=== PATIENT | female | born 1940 | race Caucasian/White ===

== ENCOUNTER 2017-05-10 11:47 | Inpatient (IN) | payer OTHER ==
[~2017-05-10] VITALS: Ht 165.1 cm; Wt 72.6 kg
[~2017-05-10 11:47] MED LIST: ACEPHEN650 MG PR; APAP ARTHRITIS650 MG PO; ASPIR 8181 MG PO; ATIVAN1 M1 PO; AUGMENTIN 875875 MG PO; BENTYL20 MG PO; CEPHALEXIN500 MG PO; COZAAR50 M1 PO; CYMBALTA 30 MG30 MG PO; CYMBALTA60 MG PO; DAILY MULTIPLE1 EACH PO; DULCOLAX10 MG PR; DULOXETINE60 MG; ELIQUIS5 MG PO; ESCITALOPRAM5 MG; FERROUS SULFAT325 M3 PO; FLEET ENEMA 131 UNIT RC; FLEXERIL 5MG TAB5 MG PO; FLUVIRIN 245 MCG/0.1 IM; GABAPENTIN TAB600 MG PO; GABAPENTIN300 MG; GABAPENTIN600 MG; GABAPENTIN600 MG PO; GAVILAX17 GM PO; HUMALOG100 UNIT/1 SC; HYDROCO/APAP TAB 5-3; HYDROCODONE/ACE1 TA1 PO; LACTULOSE10 GM/153 PO; LANTUS INS100 UNITS/; LEVEMIR FLEX100 U/M1 SC; LEVEMIR100 UNIT/1 SC; LIPITOR20 M2 PO; LOVENOX40 MG/0.1 SC; MEROPENEM1 GM IV; MILK OF MAGNESI30 ML PO; MORPHINE S10 MG/5 ML PO; NEURONTIN300 M1 PO; NORCO 325 MG-51 TAB PO; NOVOLOG FLEX100 U/ML SC; NOVOLOG100 U/ML; NOVOLOG100 U/ML SC; NYSTOP100000 U/G; OXYBUTYNIN5 MG/5 ML PO; OXYCODONE HCL10 M2 PO; OXYCODONE HYDRO10 M1 PO; PEPCID20 MG PO; PERCOCET 325 MG-5 MG PO; PERCOCET 325 MG1 TA2 PO; PLAVIX 75MG TAB75 MG PO; PRILOSEC 20MG C20 MG PO; PRILOSEC OTC20 M1 PO; PRIMAXIN IV; REMERON45 M1 PO; ROBITUSSIN COU237 ML PO; SANTYL250 U/GM; SENOKOT8.6 MG PO; TOLTERODINE TART4 MG; TOLTERODINE TART4 MG PO; TORADOL10 MG PO; TRAMADOL50 MG PO; TRAZODONE HCL150 MG; TRAZODONE HCL50 M1 PO; TRAZODONE150 MG PO; ULTRAM(MONOGRAP50 MG PO; VANCOMYCIN 11000 MG IV; VENLAFAXINE HC225 MG PO; VICODIN 300 MG-1 TAB PO; VITAMIN C500 M7 PO; WARFARIN SODIUM5 MG; ZOFRAN ODT4 MG SL; [UNRECOGNIZED DRUG - CODE] IV; [UNRECOGNIZED DRUG - SUPPLY]
--- NOTE | 2017-05-10 11:52 | ED GI/GU/ABDOMINAL COMPLAINT ---
History of Present Illness General Chief Complaint: Abdominal Pain/Flank Pain Stated Complaint: LLQ ABD PAIN Source: old records, EMS, W10 Exam Limitations: clinical condition Vital Signs & Intake/Output Vital Signs & Intake/Output Vital Signs Date Time Temp Pulse Resp B/P B/P Pulse O2 O2 Flow FiO2 Mean Ox Delivery Rate 05/12 1006 80 164/60 05/12 0724 98.8 79 20 138/57 95 05/12 0000 110/50 96 Room Air 05/11 2153 Room Air 05/11 2033 98.6 77 18 138/50 95 Room Air ED Intake and Output 05/12 0000 05/11 1200 Intake Total 09949 1280 Output Total Balance 45740 1280 [place] [address] 800 Intake, Oral 1800 480 Number 3 4 Bowel Movements Allergies Coded Allergies: adhesive tape (Intermediate, RASH 10/15/16) prochlorperazine (From Compazine) (Intermediate, SWELLING 10/15/16) warfarin (Intermediate, AMS 10/15/16) Reconcile Medications Apixaban (Eliquis) 5 MG TABLET 1 TAB PO BID BLOOD THINNER (Reported) Ascorbate Calcium (Vitamin C) 500 MG TABLET 1 TAB PO DAILY VITAMIN SUPPORT ( Reported) Ascorbic Acid (Vitamin C) 500 MG CAPSULE.ER 1 CAP PO DAILY VITAMIN (Reported) Atorvastatin Calcium (Lipitor) 20 MG TABLET 1 TAB PO QPM CHOLESTEROL ( Reported) Carbidopa/Levodopa (Carbidopa-Levodopa 25-100 Tab) 25 MG-100 MG TABLET 0.5 TAB PO TID PARKINSONS (Reported) Enoxaparin Sodium (Lovenox) 40 MG/0.4 ML SYRINGE 0.4 ML SC DAILY PREVENT BLOOD CLOT (Reported) Ferrous Sulfate 325 MG (65 MG IRON) TABLET 1 TAB PO DAILY SUPPLEMENT ( Reported) Gabapentin (Neurontin) 300 MG CAPSULE 1 CAP PO TID NEUROPATHY (Reported) Insulin Detemir (Levemir) 100 UNIT/ML VIAL 52 UNIT SC DAILY DM (Reported) Insulin Lispro (Humalog) 100 UNIT/ML CARTRIDGE DM (Reported) FS:151-200= 4 UNITS 201-250= 6 UNITS 251-300= 8 UNITS 301-350= 10 UNITS 351-400= 12 UNITS 401 AND GREATER= 14 UNITS AND CALL MD Lactulose 10 GRAM/15 ML SOLUTION 15 ML PO DAILY GI (Reported) Lorazepam (Ativan) 1 MG TABLET 1 TAB PO Q6H PRN ANXIETY (Reported) Losartan Potassium (Cozaar) 50 MG TABLET 1 TAB PO DAILY HEART (Reported) Metformin HCl 1,000 MG TABLET 1 TAB PO BID DM (Reported) Mirtazapine (Remeron) 45 MG TABLET 0.5 TAB PO QPM DEPRESSION (Reported) Multivitamin (Daily Multiple Vitamin) 1 EACH TABLET 1 TAB PO DAILY VITAMIN ( Reported) Oxycodone HCl 10 MG TABLET 1 TAB PO Q2 HRS NEEDED PRN PAIN (Reported) Pantoprazole Sodium 40 MG TABLET.DR 1 TAB PO BID GI (Reported) Polyethylene Glycol 3350 (Gavilax) 17 GRAM POWD.PACK 17 GM PO DAILY GI ( Reported) Sennosides (Senna) 8.6 MG TABLET 2 TAB PO BID CONSTIPATION (Reported) Trazodone HCl 50 MG TABLET 1 TAB PO QPM SLEEP (Reported) Venlafaxine HCl (Venlafaxine HCl ER) 225 MG TAB.ER.24 1 TAB PO DAILY DEPRESSION (Reported) Triage Nurses Notes Reviewed? yes ? N Is pt currently ? No Onset: Abrupt Duration: day(s): (FEW) Timing: recent history Quality/Severity: mild, moderate Location: left lower quadrant Radiation: no radiation Activities at Onset: sexual activity No Modifying Factors: none Associated Symptoms: NAUSSEA, BLOATING HPI: This is a 77-year-old [facility] well known to [facility] from previous visits who presents to the ER for chief complaint of possible ileus versus obstruction seen on x-ray. Patient with a recently diagnosed with colon cancer which the family is deciding not to treat. She is currently on comfort measures only. According to the parents in this facility daughter was contacted and sent to get a CAT scan done 2 plan for further treatment if that's what they wanted. Patient admits to left lower quadrant abdominal pain. She has been nauseous but hasn't vomited. Last BM was this morning. Past History Travel History Traveled to [place] past 21 day No Medical History Any Pertinent Medical History? see below for history Neurological: CVA, dementia, TIA, PERHIPERAL NEUROPATHY EENT: NONE Cardiovascular: AFIB, CAD, hypertension, hyperlipidemia, PVD, CARDIAC BYPASS FEM POP BYPASS Respiratory: NONE Gastrointestinal: ULCERS CHOLECYSTECTOMY Hepatic: NONE Renal: NONE Musculoskeletal: disk herniation, degen joint disease, osteoarthritis Psychiatric: anxiety, depression, opioid dependence, PANIC ATTACKS please see the HPI, above. Endocrine: diabetes Blood Disorders: NONE Cancer(s): NONE ELECTROMECHANICAL ASSEMBLER/Reproductive: HYSTERECTOMY History of MRSA: Yes History of VRE: No History of CDIFF: No Pneumonia Vaccine: 08/04/07 Surgical History Surgical History: CABG, cholecystectomy, hip replacement (left hip), knee replacement (left knee), laminectomy, FEM-POP BYPASS L LEG s/p coronary stents and angioplasty Psychosocial History Who do you live with Patient/Self Services at Home None What is your primary language Wolof Tobacco Use: Never used ETOH Use: denies use Illicit Drug Use: denies illicit drug use Family History Family History, If Any: MOTHER (lung ca). FATHER (esphageal ca). SISTER (diabetes). Hx Contributory? No Review of Systems Review of Systems Constitutional: Denies: chills, fever. EENTM: Reports: no symptoms. Respiratory: Denies: cough, short of breath. Cardiovascular: Denies: chest pain. GI: Reports: abdominal pain, bloating, melena. Denies: constipation, vomiting. Genitourinary: Denies: discharge, dysuria. Musculoskeletal: Reports: no symptoms. Skin: Reports: no symptoms. Neurological/Psychological: Reports: no symptoms. Hematologic/Endocrine: Denies: bruising, bleeding, polyuria, polydipsia. Immunologic/Allergic: Denies: splenectomy. All Other Systems: Reviewed and Negative Physical Exam Physical Exam General Appearance: well developed/nourished, alert, awake, mild distress, moderate distress Head: atraumatic, normal appearance Eyes: Bilateral: normal appearance, PERRL. Ears, Nose, Throat, Mouth: hearing grossly normal Neck: normal inspection, supple, full range of motion Respiratory: normal breath sounds, chest non-tender, no respiratory distress Cardiovascular: regular rate/rhythm Peripheral Pulses: 2+ radial (R), 2+ radial (L) Gastrointestinal: soft, tenderness (LLQ), NO REBOUND OR GUARDING Back: normal inspection, normal range of motion Extremities: normal range of motion Neurologic/Psych: no motor/sensory deficits, awake, alert Skin: intact, normal color, warm/dry Core Measures ACS in differential dx? No Severe Sepsis Present: No Septic Shock Present: No ED Sepsis Exam Date of Focused Sepsis Exam: 05/10/17 Time of Focused Sepsis Exam: 1155 Sepsis Cardiac Exam: Regular Rate/Rhythm Sepsis Resp Exam: CTA Sepsis Cap Refill Exam: <2 Sec Sepsis Peripheral Pulse Exam: Normal Sepsis Peripheral Pulse Location: Radial Sepsis Skin Color Exam: Normal for Ethnicity Skin Temp/Moisture Exam: Warm/Dry Progress Differential Diagnosis: bowel obstruction, colon cancer, perforated viscous, SBO Plan of Care: Orders Procedure Date/time Status CBC WITHOUT DIFFERENTIAL 05/13 600 Active BASIC ELECTROLYTES PLUS BUN&CR 05/13 600 Active Transfer Disposition 05/12 1144 Active Transfer patient to 05/12 914 Active EKG 05/12 914 Active TROPONIN LEVEL 05/12 710 Complete PROTHROMBIN TIME 05/12 600 Complete CBC WITHOUT DIFFERENTIAL 05/12 600 Complete BASIC ELECTROLYTES PLUS BUN&CR 05/12 600 Complete Lab Add-on Test 05/12 UNK Active ECHOCARDIOGRAM 05/12 UNK Active RT: Evaluation 05/11 2153 Active Skin Integrity Protocol 05/11 1944 Active Skin/Pressure Ulcer Assess (Sk 05/11 1944 Active THERAPIST ORDERS 05/11 UNK Complete Current Medications Sig/Majo Start time Last Medication Dose Stop Time Status Admin Insulin Detemir 13 UNITS BID 05/12 1000 AC 05/12 (Levemir) 0959 Meropenem 1 GM Q8H 05/11 1100 AC 05/12 (MEROPENEM) 1030 Ketorolac 15 MG Q8P PRN 05/11 1030 AC 05/11 Tromethamine 1032 (Toradol) Ferrous Sulfate 325 MG DAILY 05/11 1000 AC 05/12 (Feosol) 0958 Losartan Potassium 50 MG DAILY 05/11 1000 AC 05/12 (Cozaar) 0958 Polyethylene Glycol 17 GM DAILY 05/11 1000 AC (Miralax) Insulin Aspart 0 TIDAC 05/11 08 AC 05/12 (NovoLOG) 1614 Venlafaxine HCl 225 MG 05/11 0800 AC 05/12 (Effexor Xr) 0838 Omeprazole 40 MG DAILY AC 05/11 0700 AC 05/12 (Prilosec) 0511 Apixaban 5 MG BID 05/10 2200 AC 05/12 (Eliquis) 0958 Atorvastatin Calcium 20 MG QPM 05/10 2200 AC 05/10 (Lipitor) 2225 Carbidopa/Levodopa 0.5 TAB TID 05/10 2200 AC 05/12 (Sinemet 25/100MG) 1532 Gabapentin 300 MG TID 05/10 2200 AC 05/12 (Neurontin) 1532 Mirtazapine 30 MG AT BEDTIME 05/10 2200 AC 05/10 (Remeron) 222 Trazodone HCl 50 MG QPM 05/10 2200 AC 05/10 (Desyrel) 222 Docusate Sodium 100 MG BID PRN 05/10 2000 AC (Colace) Lorazepam 1 MG Q6H PRN 05/10 2000 AC (Ativan) Senna 187 MG AT BEDTIME PRN 05/10 2000 AC (Senokot) Laboratory Tests 05/12/1714: Troponin I Cancelled 05/12/17709: Anion Gap 10, Estimated GFR > 60, BUN/Creatinine Ratio 41.4 H, Troponin I < 0.01, PT 17.5 H, INR 1.68 H, CBC w Diff NO MAN DIFF REQ, RBC 3.12 L, MCV 87.8 , MCH 27.7, RDW 14.9 H, MPV 9.9, Gran % 87.2 H, Lymphocytes % 7.0 L, Monocytes % 4.6, Eosinophils % 0.8, Basophils % 0.4, Absolute Granulocytes 16.3 H, Absolute Lymphocytes 1.3, Absolute Monocytes 0.9 H, Absolute Eosinophils 0.2 , Absolute Basophils 0.1, PUBS MCHC 31.6 L 2 PM MESSAGE LEFT WITH DAUGHTER TO CALL BACK. D/W DAUGHTER AT BEDSIDE. PATIENT IS DNR/DNI, NOT COMFORT MEASURES. SHE DISCHSSED IT WITH HER SISTER (POA) ON THE PHONE. NO OBSTRUCTION OR PERFORATION ON CT SCAN. PATIENT WITH SIGNIFICANT ELEVATED WBC, IV ABX ORDERED FOR UROSEPSIS. FLAGYL ORDERED TO COVER OTHER INTRAABDOMINAL PATHOLOGY. WILL ADMIT TO MEDICAL SERVICE. (HAILE PRESCOTT,ORTIZ) Diagnostic Imaging: Viewed by Me: CT Scan. Discussed w/RAD: CT Scan. Radiology Impression: PATIENT: CLARA LEE PRESENT AGE: 77 PATIENT ACCOUNT NO: [id number] : 42 LOCATION: [facility] ORDERING PHYSICIAN: ORTIZ BE MD SERVICE DATE: 05/10/17629 EXAM TYPE: CAT - CT ABD & PELVIS W IV CONTRAST EXAMINATION: CT ABDOMEN AND PELVIS WITH CONTRAST CLINICAL INFORMATION: Abdominal pain. Abnormal x-ray. COMPARISON: Portions of a previous CT 12/12/16 TECHNIQUE: Multidetector volumetric imaging was performed of the abdomen and pelvis before and after the IV administration of 95 mL of Optiray 320 intravenous contrast. Sagittal and coronal reformatted images were obtained on the technologist's workstation. DLP: 659 mGy-cm FINDINGS: LUNG BASES : There is atherosclerotic irregularity of the distal thoracic aorta. Coronary calcifications. Surgical clips near the GE junction. There are some nonspecific lung base opacities. Minimal pleural reaction. LIVER, GALLBLADDER, AND BILIARY TREE: Artifact limits assessment of the liver. There is an apparent poorly defined somewhat wedge-shaped area of low attenuation at the margin of hepatic segment 6 (series 2, image 31). This is likely unchanged. There is poorly defined low attenuation along the margin of the left lobe of the liver. The gallbladder is likely surgically absent. The common duct is prominent similar to the previous study. PANCREAS: The pancreas is atrophic and nearly completely fatty replaced. SPLEEN: Multiple peripheral collapse. No suspicious mass ADRENAL GLANDS: Within normal limits KIDNEYS AND URETERS: No suspicious mass. Tiny cysts may be present. No dilation of the urinary collecting system on either side. BLADDER: The bladder is not well-distended. No focal abnormality. There is artifact. GASTROINTESTINAL TRACT: There is circumferential focal narrowing with wall thickening in the region of the hepatic flexure. This is a concerning finding. A mass may be present. Alternatively a focal stricture could give this appearance. Malignancy is suspected. There is gas and fluid distending the most proximal colon. No evidence of a high-grade small bowel obstruction. There is redundancy in the region of the sigmoid with at least one area of apparent wall thickening which is difficult to assess. Additional wall thickening of the sigmoid is nonspecific. The stomach has some surgical clips along the posterior aspect of the distal stomach. ABDOMINAL WALL: Evidence of left inguinal surgery. Evidence of right upper quadrant surgery. LYMPH NODES: There is a gastrohepatic ligament region lymph nodes (series 2, image 26). No free intraperitoneal fluid. VASCULAR: The external iliac and common femoral arteries are small caliber. There is extensive atherosclerosis. 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 There may be a separate origin of the hepatic artery and splenic artery. There is irregular plaque. There is a normal variant retroaortic left renal vein. The IVC is collapsed. The common femoral veins are small caliber. There are surgical clips in the inguinal region on each side PELVIC VISCERA: The uterus is surgically absent. No large adnexal mass or collection. OSSEOUS STRUCTURES: Instrumentation left proximal femur causes artifact. Degenerative change in the spine IMPRESSION: There is a concerning area of focal narrowing of the ascending colon close to the hepatic flexure. A mass may be present. Malignancy could give this appearance. Redundant areas of narrowing in the sigmoid colon are of uncertain significance. There is artifact but there is an apparent lesion involving the lower right lobe the liver. Previous remote study 01/29/12 has become available and this appears unchanged. The attenuation along the margin of the left lobe the liver is also abnormal and appears unchanged. Recommend further evaluation. This might include colonoscopy. The timing requires clinical correlation. DICTATED BY: KELSEY HINKLE MD DATE/ TIME DICTATED:05/10/171310 KILN OPERATOR:LUIS ARMANDO DATE/TIME TRANSCRIBED: 05/10/171310 CONFIDENTIAL, DO NOT COPY WITHOUT APPROPRIATE AUTHORIZATION. < Electronically signed in Other Vendor System> SIGNED BY: KELSEY HINKLE MD 05/10/17 1331 Initial ED EKG: NSR, BASELINE ARTIFACT Departure Departure Time of Disposition: 151 Disposition: STILL A PATIENT Condition: Stable Clinical Impression Primary Impression: UTI (urinary tract infection) Secondary Impressions: Abdominal pain, Leukocytosis Referrals: MIKAL AVILEZ MD (PCP/Family) Departure Forms: Customer Survey General Discharge Information Admission Note Spoke With: TAVON WEN MD Documentation of Exam: Documentation of any treatments & extenuating circumstances including Concerns Regarding Discharge (functional status, medication knowledge or non-compliance, living conditions, etc.) that warrant an admission rather than observation: [IV ABX, IV FLUIDS, PAIN CONTROL, F/U CULTURES, SERIAL ABDOMINAL EXAMINATION]
[2017-05-10] MEDS ORDERED: METFORMIN HCL1000 M1 PO (12:11)
[2017-05-10] MEDS ORDERED: SENNA8.6 M3 PO (12:13)
[2017-05-10] MEDS ORDERED: VITAMIN C500 M6 PO (12:17)
[2017-05-10] MEDS ORDERED: PANTOPRAZOLE SO40 M1 PO (12:18)
[2017-05-10] MEDS ORDERED: CARBIDOPA-LEVO1 EAC7 PO (12:20)
[2017-05-10] MEDS ORDERED: ELIQUIS5 M1 PO (12:21)
--- NOTE | 2017-05-10 13:31 | CT SCAN REPORT ---
EXAMINATION: CT ABDOMEN AND PELVIS WITH CONTRAST CLINICAL INFORMATION: Abdominal pain. Abnormal x-ray. COMPARISON: Portions of a previous CT 10/15/16 TECHNIQUE: Multidetector volumetric imaging was performed of the abdomen and pelvis before and after the IV administration of 95 mL of Optiray 320 intravenous contrast. Sagittal and coronal reformatted images were obtained on the technologist's workstation. DLP: 659 mGy-cm FINDINGS: LUNG BASES: There is atherosclerotic irregularity of the distal thoracic aorta. Coronary calcifications. Surgical clips near the GE junction. There are some nonspecific lung base opacities. Minimal pleural reaction. LIVER, GALLBLADDER, AND BILIARY TREE: Artifact limits assessment of the liver. There is an apparent poorly defined somewhat wedge-shaped area of low attenuation at the margin of hepatic segment 6 (series 2, image 31). This is likely unchanged. There is poorly defined low attenuation along the margin of the left lobe of the liver. The gallbladder is likely surgically absent. The common duct is prominent similar to the previous study. PANCREAS: The pancreas is atrophic and nearly completely fatty replaced. SPLEEN: Multiple peripheral collapse. No suspicious mass ADRENAL GLANDS: Within normal limits KIDNEYS AND URETERS: No suspicious mass. Tiny cysts may be present. No dilation of the urinary collecting system on either side. BLADDER: The bladder is not well-distended. No focal abnormality. There is artifact. GASTROINTESTINAL TRACT: There is circumferential focal narrowing with wall thickening in the region of the hepatic flexure. This is a concerning finding. A mass may be present. Alternatively a focal stricture could give this appearance. Malignancy is suspected. There is gas and fluid distending the most proximal colon. No evidence of a high-grade small bowel obstruction. There is redundancy in the region of the sigmoid with at least one area of apparent wall thickening which is difficult to assess. Additional wall thickening of the sigmoid is nonspecific. The stomach has some surgical clips along the posterior aspect of the distal stomach. ABDOMINAL WALL: Evidence of left inguinal surgery. Evidence of right upper quadrant surgery. LYMPH NODES: There is a gastrohepatic ligament region lymph nodes (series 2, image 26). No free intraperitoneal fluid. VASCULAR: The external iliac and common femoral arteries are small caliber. There is extensive atherosclerosis. 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 There may be a separate origin of the hepatic artery and splenic artery. There is irregular plaque. There is a normal variant retroaortic left renal vein. The IVC is collapsed. The common femoral veins are small caliber. There are surgical clips in the inguinal region on each side PELVIC VISCERA: The uterus is surgically absent. No large adnexal mass or collection. OSSEOUS STRUCTURES: Instrumentation left proximal femur causes artifact. Degenerative change in the spine IMPRESSION: There is a concerning area of focal narrowing of the ascending colon close to the hepatic flexure. A mass may be present. Malignancy could give this appearance. Redundant areas of narrowing in the sigmoid colon are of uncertain significance. There is artifact but there is an apparent lesion involving the lower right lobe the liver. Previous remote study 01/29/12 has become available and this appears unchanged. The attenuation along the margin of the left lobe the liver is also abnormal and appears unchanged. Recommend further evaluation. This might include colonoscopy. The timing requires clinical correlation.
--- NOTE | 2017-05-10 15:28 | History & Physical ---
JUVENTINO VIRK 05/10/17 1527: General Information and HPI MD Statement: I have seen and personally examined CLARA RODRIGUEZ and documented this H&P. The patient is a 77 year old F who presented with a patient stated chief complaint of [abdominal pain and urine infection]. Source of Information: family, old records Exam Limitations: clinical condition History of Present Illness: Mrs Rodriguez is a 77-year-old lady with a PMH of diabetes complicated with neuropathy, CAD/CABG status post stenting, chronic anxiety, vascular dementia, peripheral vascular disease, left femoral-popliteal bypass with failed grafting and resultant left above-knee amputation, hypertension, history of GI bleed in 2015 found to have sessile polyp and a mass in the ascending colon that came back positive on biopsy for villous adenoma with superficial invasive adenocarcinoma for which the patient opted NOT to be notified but however did find out a few months ago. Patient decided not to have any surgical intervention and has since been residing at [facility]. Information obtained from [facility] and patient's family indicates that she has been complaining of new onset left lower abdominal discomfort for the past 1 week. No reports of new onset nausea, vomiting, constipation from her baseline or bloody stools.. X-ray performed prior to admission showed possible ileus with recommendation for follow-up CAT scan. CT on admission today shows concerning area of focal narrowing in the ascending colon near the hepatic flexure, Redundant areas of narrowing in the sigmoid colon, apparent lesion in the lower right lobe of the liver. At her baseline she is nonambulatory with total assist. ROS: She reports lower abdominal discomfort but denies any other symptoms at this time. Allergies/Medications Allergies: Coded Allergies: adhesive tape (Intermediate, RASH 10/15/16) prochlorperazine (From Compazine) (Intermediate, SWELLING 10/15/16) warfarin (Intermediate, AMS 10/15/16) Home Med list Apixaban (Eliquis) 5 MG TABLET 1 TAB PO BID BLOOD THINNER (Reported) Ascorbate Calcium (Vitamin C) 500 MG TABLET 1 TAB PO DAILY VITAMIN SUPPORT ( Reported) Ascorbic Acid (Vitamin C) 500 MG CAPSULE.ER 1 CAP PO DAILY VITAMIN (Reported) Atorvastatin Calcium (Lipitor) 20 MG TABLET 1 TAB PO QPM CHOLESTEROL ( Reported) Carbidopa/Levodopa (Carbidopa-Levodopa 25-100 Tab) 25 MG-100 MG TABLET 0.5 TAB PO TID PARKINSONS (Reported) Enoxaparin Sodium (Lovenox) 40 MG/0.4 ML SYRINGE 0.4 ML SC DAILY PREVENT BLOOD CLOT (Reported) Ferrous Sulfate 325 MG (65 MG IRON) TABLET 1 TAB PO DAILY SUPPLEMENT ( Reported) Gabapentin (Neurontin) 300 MG CAPSULE 1 CAP PO TID NEUROPATHY (Reported) Insulin Detemir (Levemir) 100 UNIT/ML VIAL 52 UNIT SC DAILY DM (Reported) Insulin Lispro (Humalog) 100 UNIT/ML CARTRIDGE DM (Reported) FS:151-200= 4 UNITS 201-250= 6 UNITS 251-300= 8 UNITS 301-350= 10 UNITS 351-400= 12 UNITS 401 AND GREATER= 14 UNITS AND CALL Lactulose 10 GRAM/15 ML SOLUTION 15 ML PO DAILY GI (Reported) Lorazepam (Ativan) 1 MG TABLET 1 TAB PO Q6H PRN ANXIETY (Reported) Losartan Potassium (Cozaar) 50 MG TABLET 1 TAB PO DAILY HEART (Reported) Metformin HCl 1,000 MG TABLET 1 TAB PO BID DM (Reported) Mirtazapine (Remeron) 45 MG TABLET 0.5 TAB PO QPM DEPRESSION (Reported) Multivitamin (Daily Multiple Vitamin) 1 EACH TABLET 1 TAB PO DAILY VITAMIN ( Reported) Oxycodone HCl 10 MG TABLET 1 TAB PO Q2 HRS NEEDED PRN PAIN (Reported) Pantoprazole Sodium 40 MG TABLET.DR 1 TAB PO BID GI (Reported) Polyethylene Glycol 3350 (Gavilax) 17 GRAM POWD.PACK 17 GM PO DAILY GI ( Reported) Sennosides (Senna) 8.6 MG TABLET 2 TAB PO BID CONSTIPATION (Reported) Trazodone HCl 50 MG TABLET 1 TAB PO QPM SLEEP (Reported) Venlafaxine HCl (Venlafaxine HCl ER) 225 MG TAB.ER.24 1 TAB PO DAILY DEPRESSION (Reported) Past History Travel History Traveled to [place] past 21 day No Medical History Neurological: CVA, dementia, TIA, PERHIPERAL NEUROPATHY EENT: NONE Cardiovascular: AFIB, CAD, hypertension, hyperlipidemia, PVD, CARDIAC BYPASS FEM POP BYPASS Respiratory: NONE Gastrointestinal: ULCERS CHOLECYSTECTOMY Hepatic: NONE Renal: NONE Musculoskeletal: disk herniation, degen joint disease, osteoarthritis Psychiatric: anxiety, depression, opioid dependence, PANIC ATTACKS please see the HPI, above. 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 FATHER (esphageal ca). SISTER (diabetes). Psychosocial History Services at Home: None Primary Language: Yemeni ETOH Use: denies use Illicit Drug Use: denies illicit drug use Living Will? yes Power of Die Fitter/HCP? yes Name of POA/HCP: Unable to contact Radha Smith Review of Systems Review of Systems Constitutional: Reports: see HPI. EENTM: Reports: no symptoms. Cardiovascular: Reports: no symptoms. Respiratory: Reports: no symptoms. GI: Reports: see HPI. Genitourinary: Reports: no symptoms. Musculoskeletal: Reports: see HPI. Skin: Reports: no symptoms. Exam & Diagnostic Data Last 24 Hrs of Vital Signs/I&O Vital Signs Date Time Temp Pulse Resp B/P B/P Pulse O2 O2 Flow FiO2 Mean Ox Delivery Rate 05/10 1843 98.2 90 20 134/60 94 05/10 1616 97.8 92 16 150/67 92 Room Air 05/10 1351 97.0 88 18 166/70 95 Room Air 05/10 1203 96.8 90 18 180/72 94 Room Air Intake & Output 05/10 1600 05/10 0800 05/10 0000 Intake Total 0 Output Total Balance 0 Intake, Oral 0 Patient 140 lb Weight Physical Exam General Appearance No Acute Distress, Easily arousable and in no acute distress Skin No Significant Lesion Skin Temp/Moisture Exam: Warm/Dry HEENT mucous membranes appear dry Neck normal range of motion with no tenderness to palpation Cardiovascular Regular Rate, Normal S1, Normal S2 Lungs Normal Air Movement, diminished breath sounds the basilar region Abdomen the abdomen is diffusely distended with tenderness to palpation greater on the left lower quadrant also present in the right lower quadrant. Distant bowel sounds Extremities Normal Pulses, left above-knee amputation Last 24 Hrs of Labs/Bradley: Laboratory Tests 05/10/17 1515: Anion Gap 16, Estimated GFR > 60, BUN/Creatinine Ratio 57.1 H, Glucose 93, Lactic Acid 2.5 H, Calcium 9.5, Total Bilirubin 0.5, AST 20, ALT 23, Alkaline Phosphatase 113, Total Protein 6.6, Albumin 3.5, Globulin 3.1, Albumin/Globulin Ratio 1.1, CBC w Diff MAN DIFF ORDERED, RBC 4.31, MCV 87.2, MCH 28.4, RDW 14.6 H, MPV 9.6, Gran % 90.4 H, Lymphocytes % 3.4 L, Monocytes % 6.2, Eosinophils % 0, Basophils % 0 L, Absolute Granulocytes 42.0 H, Absolute Lymphocytes 1.6, Absolute Monocytes 2.9 H, Absolute Eosinophils 0, Absolute Basophils 0, Platelet Estimate ADEQUATE, Normochromic RBCs VERIFIED, Anisocytosis 1+, PUBS MCHC 32.6 L Microbiology 05/10 1550 BLOOD: Blood Culture - RECD 05/10 1515 BLOOD: Blood Culture - RECD Diagnostic Data EKG Results Pacemaker spikes or artifacts HR 89 Inferior infarct old. QTC [address] abdomen and pelvis: CT on admission today shows concerning area of focal narrowing in the ascending colon near the hepatic flexure, Redundant areas of narrowing in the sigmoid colon, apparent lesion in the lower right lobe of the liver. Assessment/Plan Assessment: 77-year-old lady with a PMH of diabetes complicated with neuropathy, CAD/CABG status post stenting, chronic anxiety, vascular dementia, peripheral vascular disease, left femoral-popliteal bypass with failed grafting and resultant left above-knee amputation, hypertension, history of GI bleed in 2014 found to have sessile polyp and a mass in the ascending colon that came back positive on biopsy for villous adenoma with superficial invasive adenocarcinoma for which the patient opted NOT to be notified but however did find out a few months ago. Patient decided not to have any surgical intervention and has since been residing at [facility]. Patient presented to [facility] with complaints of one-week duration left lower abdominal pain. CT findings as indicated above. VS on admission: BP 180/72, HR 90, RR 18, SPO2 94% on RA, T 96.8 Pertinent labs on admission: WBC 46.5, H&H 12.2/37.6, platelets 417 sodium 139, potassium 4.5, bicarbonate 25, BUN/CR/0.7, glucose 93 Urine culture (05/09/2017): Gram-negative rods Problem list: 1. UTI 2. Leukocytosis 3. Previously diagnosed GI malignancy: Current CT findings showing Focal narrowing in the ascending colon near hepatic flexure, narrowing in sigmoid colon, lesion in lower lobe of liver 4. CAD/CABG 5. PVD 6. Diabetes 7. History of anxiety 8. History of vascular dementia 9. Peripheral neuropathy Plan: * Admit to general medicine floor for management of urinary tract infection. Previous cultures from January 2017 grew Escherichia coli and Pseudomonas. We'll start the patient on ceftazidime, follow-up urine and blood culture and adjust antibiotics accordingly * Leukocytosis 45.6: This could be due to the urinary tract infection or underlying malignancy. I had a chance to speak with both of the patient's daughters including the POA. They indicate that at this time for primary plan should be management of the urinary tract infection. If any complications arise that may be secondary to the underlying malignancy, notify family immediately with no plan for escalation in interventions. * History of CAD, CABG, PVD: Continue with Eliquis 5 mg BID * History of anxiety: Continue with lorazepam 1 mg Q6 PRN * Diabetic diet, Levemir 52 units daily, low-dose sliding scale. We'll keep the patient on maintenance fluid D5NS @ 75cc/hr 1 bag. Reassess swallowing status in the a.m. prior to restarting more fluid * Gabapentin 300 mg TID for neuropathy * Regular diet with bowel regimen. Consider discontinuing iron supplementation if concern for constipation * DVT prophylaxis: Eliquis * DNR/DNI As Ranked By This Provider Problem List: 1. UTI (urinary tract infection) 2. Leukocytosis 3. Abdominal discomfort 4. Villous adenoma of colon 5. Peripheral vascular disease 6. Diabetes mellitus type 2 7. CAD s/p stent Core Measures/Miscellaneous Acute Coronary Syndrome ACS Diagnosis: No Cerebrovascular Accident CVA/TIA Diagnosis: No Congestive Heart Failure CHF Diagnosis: No VTE (View Protocol) VTE Risk Factors: Age > 40, Cancer/chemo/oth therapy No Mech VTE prophylaxis d/t: No contraindications No VTE Pharm Prophylaxis d/t: No contraindications VTE Diagnosis: No VTE Type: NONE VTE Confirmed by (Test): NONE Sepsis (View Protocol) Severe Sepsis Present: No Septic Shock Septic Shock Present: No Miscellaneous Documentation Attending Case Discussed With: TAVON WEN MD Primary Care Physician: MIKAL AVILEZ MD Patient sees these Specialists Dr. Landis (gastroenterology) Level of Patient Care: General Medicine Resident Review Statement Resident Statement: examined this patient, discussed with culinary internship, agreed with culinary internship, discussed with family, reviewed EMR data (avail), discussed with nursing , reviewed images TAVON WEN MD 05/10/17 1646: Attending MD Review Statement Attending Statement Attending MD Statement: examined this patient, discuss w/resident/PA/TRANSITION RN, agreed w/resident/PA/TRANSITION RN, reviewed EMR data (avail) Attending Assessment/Plan: 77F PMH HTN, HLD, Afib not on anticoagulation, PAD, CVA, CAD, recently diagnosed colon cancer by colonoscopy with patient declining treatment for it, presenting with several days of LLQ pain, diffuse abdominal discomfort, and weakness. Concern at [facility] was for ileus, though patient had a bowel movement this morning. The patient's only complaint is 4/10 LLQ pain. She is otherwise well and has no complaints. Most of history was provided by the patient's daughter, Ivette, who was at the bedside. In the ED the patient was found to have a WBC of 46k and UA suggestive of UTI. CT abdomen confirms mass suspicious for colon cancer, unchanged cyst in liver, no evidence of colitis or perforation. Of note, patient's W10 from [place] lists her as comfort measures only, which is NOT true. The patient is DNR/DNI. She does not wish to have surgery or chemotherapy for her colon cancer. But she does in fact want treatment for any other clinical condition, disease, infection, or otherwise. No invasive procedures. 1. UTI 2. LLQ pain 3. Neutrophilia 4. Colon cancer, unknown stage Plan - Admit to general medicine - Start Ceftriaxone - Follow urine and blood cultures - Pain control - Gentle IV hydration - continue home medications - Recheck CBC and BEP tomorrow - DVT PPx
[2017-05-10 16:19] LABS: ABSOLUTE BASOPHIL COUNT 0 /CUMM (0.0-0.2); ABSOLUTE EOSINOPHIL COUNT 0 /CUMM (0.0-0.7); ABSOLUTE LYMPH COUNT 1.6 /CUMM (1.2-3.4); ABSOLUTE MONOCYTE COUNT 2.9 /CUMM (0.10-0.60); BASOPHIL % 0 % (0.0-2.0); EOSINOPHIL % 0 % (0-5); GRANULOCYTE % 90.4 % (42.2-75.2); HEMATOCRIT 37.6 % (37-47); MEAN CORPUSCULAR HGB 28.4 PG (27.0-31.0); MEAN CORPUSCULAR HGB CONC 32.6 G/DL (33.0-37.0); MEAN CORPUSCULAR VOLUME 87.2 FL (81.0-99.0); MEAN PLATELET VOLUME 9.6 FL (7.4-10.4); PLATELET COUNT 417 /CUMM (130-400); RBC DISTRIBUTION WIDTH 14.6 % (11.5-14.5); RED BLOOD CELL CT 4.31 /CUMM (4.20-5.40)
[2017-05-10 16:29] LABS: WHITE BLOOD CELL COUNT 46.5 /CUMM (4.8-10.8)
--- NOTE | 2017-05-10 16:48 | Admission Certification ---
Admission Certification Certification Statement - As attending physician, I certify that at the time of - admission, based on clinical presentation, severity of - symptoms, need for further diagnostic testing and - therapeutic interventions, and risk of adverse outcomes - without in-hospital treatment, in my clinical assessment, - this patient requires an acute hospital stay for a minimum - of two nights or longer. I have also considered psychsocial - factors such as support system, advanced age, financial - issues, cognitive issues, and failed out-patient treatments, - past re-admission history, safety of patient, and lack of - compliance as applicable. Specific rationale supporting this admission is: Colon cancer with WBC 46k, LLQ pain, weakness
[2017-05-10 18:43] VITALS: BP 134/60
[2017-05-10 22:35] VITALS: BP 126/68
--- NOTE | 2017-05-11 04:15 | PN- Housestaff ---
See Addendum Subjective Follow-up For: Urinary tract infection Leukocytosis Previous diagnosis GI malignancy Complaints: lower abdominal pain Subjective: Interval history: Overnight there were no acute events. This morning the patient does state that she is still having intermittent abdominal pain. She was able to pass a bowel movement without any blood noted. She denies any fevers, chills, chest pain or shortness of breath. Review of Systems Constitutional: Reports: see HPI. EENTM: Reports: see HPI. Cardiovascular: Reports: no symptoms. Respiratory: Reports: no symptoms. Gastrointestinal: Reports: see HPI. Genitourinary: Reports: no symptoms. Objective Last 24 Hrs of Vital Signs/I&O Vital Signs Date Time Temp Pulse Resp B/P B/P Pulse O2 O2 Flow FiO2 Mean Ox Delivery Rate 05/10 2235 97.8 103 16 126/68 95 Room Air 05/10 1843 98.2 90 20 134/60 94 05/10 1616 97.8 92 16 150/67 92 Room Air 05/10 1351 97.0 88 18 166/70 95 Room Air 05/10 1203 96.8 90 18 180/72 94 Room Air Intake & Output 05/11 0800 05/11 0000 05/10 1600 Intake Total 150 0 Output Total Balance 150 0 Intake, IV 150 Intake, Oral 0 Patient 160 lb 140 lb Weight Weight Estimated Measurement Method Physical Exam General Appearance: Alert, No acute distress. Easily arousable Skin Temp/Moisture Exam: Warm/Dry Sepsis Skin Exam (color): Normal for Ethnicity HEENT: Mucous Membr. moist/pink, interval improvement in moisture of the oral mucous membranes Cardiovascular: Regular Rate, Normal S1, Normal S2 Lungs: Normal Air Movement, diminished breath sounds in the basilar regions bilaterally Abdomen: Soft, tenderness to palpation of the lower right and left quadrants Extremities: left above-knee amputation. Skin warm to touch Current Medications: Current Medications Sig/Majo Start time Last Medication Dose Route Stop Time Status Admin Apixaban 5 MG BID 05/10 2200 AC 05/10 PO 222 Atorvastatin Calcium 20 MG QPM 05/10 2200 AC 05/10 PO 222 Carbidopa/Levodopa 0.5 TAB TID 05/10 2200 AC 05/10 PO 222 Ceftazidime 1,000 MG IQ8 05/11 0000 AC 05/11 IV 0109 Ceftriaxone Sodium 0 .STK-MED ONE 05/10 1605 DC .ROUTE Ceftriaxone Sodium 1,000 MG ONCE ONE 05/10 1500 DC 05/10 IV 05/10 1501 1610 Dextrose/Sodium 1,000 ML Q13H 05/10 2115 AC 05/10 Chloride IV 05/11 1814 2208 Docusate Sodium 100 MG BID PRN 05/10 2000 AC PO Enoxaparin Sodium 40 MG DAILY 05/10 1859 DC SC Ferrous Sulfate 325 MG DAILY 05/11 1000 AC PO Gabapentin 300 MG TID 05/10 220 AC 05/10 PO 2225 Insulin Aspart 0 TIDAC 05/11 08 AC SC Insulin Detemir 52 UNITS DAILY 05/11 1000 AC SC Lorazepam 1 MG Q6H PRN 05/10 2000 AC PO Losartan Potassium 50 MG DAILY 05/11 1000 AC PO Metronidazole 500 MG ONCE ONE 05/10 1515 DC 05/10 N/A 1 UNIT IV 05/10 1614 1610 Mirtazapine 30 MG AT BEDTIME 05/10 2200 AC 05/10 PO 2225 Morphine Sulfate 0 .STK-MED ONE 05/10 1531 DC .ROUTE Morphine Sulfate 4 MG ONCE ONE 05/10 1530 DC 05/10 IV 05/10 1531 1530 Omeprazole 40 MG DAILY AC 05/11 07 AC PO Polyethylene Glycol 17 GM DAILY 05/11 1000 AC PO Senna 187 MG AT BEDTIME PRN 05/10 2000 AC PO Sodium Chloride 1,000 ML BOLUS ONE 05/10 1645 DC 05/10 IV 05/10 1744 1654 Trazodone HCl 50 MG QPM 05/10 2200 AC 05/10 PO 2225 Venlafaxine HCl 225 MG 0800 05/11 0800 AC PO Last 24 Hrs of Lab/Bradley Results Last 24 Hrs of Labs/Mics: Laboratory Tests 05/11/17 0120: Lactic Acid 2.8 H 05/10/17 1803: Lactic Acid Cancelled 05/10/17 1515: Anion Gap 16, Estimated GFR > 60, BUN/Creatinine Ratio 57.1 H, Glucose 93, Lactic Acid 2.5 H, Calcium 9.5, Total Bilirubin 0.5, AST 20, ALT 23, Alkaline Phosphatase 113, Total Protein 6.6, Albumin 3.5, Globulin 3.1, Albumin/Globulin Ratio 1.1, CBC w Diff MAN DIFF ORDERED, RBC 4.31, MCV 87.2, MCH 28.4, RDW 14.6 H, MPV 9.6, Gran % 90.4 H, Lymphocytes % 3.4 L, Monocytes % 6.2, Eosinophils % 0, Basophils % 0 L, Absolute Granulocytes 42.0 H, Absolute Lymphocytes 1.6, Absolute Monocytes 2.9 H, Absolute Eosinophils 0, Absolute Basophils 0, Platelet Estimate ADEQUATE, Normochromic RBCs VERIFIED, Anisocytosis 1+, PUBS MCHC 32.6 L Microbiology 05/10 1550 BLOOD: Blood Culture - RECD 05/10 1515 BLOOD: Blood Culture - RECD Orders Fingersticks (last 24 hrs): Lowest blood sugar 58 Assessment/Plan Assessment: 77-year-old lady with a PMH of diabetes complicated with neuropathy, CAD/CABG status post stenting, chronic anxiety, vascular dementia, peripheral vascular disease, left femoral-popliteal bypass with failed grafting and resultant left above-knee amputation, hypertension, history of GI bleed in 2014 found to have sessile polyp and a mass in the ascending colon that came back positive on biopsy for villous adenoma with superficial invasive adenocarcinoma for which the patient opted NOT to be notified but however did find out a few months ago. Patient decided not to have any surgical intervention and has since been residing at [facility]. Patient presented to [facility] with complaints of one-week duration left lower abdominal pain. CT findings as indicated above. Problem list: 1. UTI 2. Leukocytosis 3. Previously diagnosed GI malignancy: Current CT findings showing Focal narrowing in the ascending colon near hepatic flexure, narrowing in sigmoid colon, lesion in lower lobe of liver 4. Diabetes 5. History of anxiety 7. History of vascular dementia 8. Peripheral neuropathy 1. UTI * Follow-up urine cultures. We'll continue with ceftaz 1 g IV Q8 2. Leukocytosis with elevated lactic acid * Possibly secondary to UTI vs the underlying malignancy * Interval improvement in leukocytosis down to 37.8 from 46.5 * Persistent lactic acid elevation may be due to an ongoing ischemic picture which at this time will not be pursued. If evidence of hemodynamic instability family will be notified 3. Previously diagnosed GI malignancy Current CT findings showing Focal narrowing in the ascending colon near hepatic flexure, narrowing in sigmoid colon, lesion in lower lobe of liver * Per family discussion, no plan for any intervention. If evidence of obstruction or complication from underlying malignancy aren't present, notify family immediately 4. Anemia * New onset drop in H&H to 10.1/31.8 * Unclear if this is secondary to dilutional effect in the setting of fluid resuscitation versus a GI bleed. Will defer any aggressive intervention/workup and monitor for now 5. Diabetes * Home dose of Levemir is 52 units daily * In the setting of hypoglycemic episode, poor oral intake at this time we will decrease long-acting scale by 50%, Continue with D5 normal saline at 125 mL an hour * Continue with low-dose sliding scale 6. History of anxiety * Continue with lorazepam 1 mg Q6 7. History of vascular dementia * Continue with Sinemet 25/100 mg half tab 3 times a day 8. Peripheral neuropathy * Continue with gabapentin 300 mg 3 times a day Problem List: 1. UTI (urinary tract infection) 2. Villous adenoma of colon Pain Ratin Pain Location: Lower abdomen Pain Goal: Pain 4 or less Pain Plan: Pain pathway Tomorrow's Labs & Rationales: CBC: Trending leukocytosis DVT/Prophylaxis: pharmacological
[2017-05-11 05:08] LABS: ABSOLUTE BASOPHIL COUNT 0 /CUMM (0.0-0.2); ABSOLUTE EOSINOPHIL COUNT 0 /CUMM (0.0-0.7); ABSOLUTE GRANULOCYTE CT 34.7 /CUMM (1.4-6.5); ABSOLUTE LYMPH COUNT 1.3 /CUMM (1.2-3.4); ABSOLUTE MONOCYTE COUNT 1.8 /CUMM (0.10-0.60); BASOPHIL % 0.1 % (0.0-2.0); EOSINOPHIL % 0 % (0-5); GRANULOCYTE % 91.8 % (42.2-75.2); MEAN CORPUSCULAR HGB 27.9 PG (27.0-31.0); MEAN CORPUSCULAR HGB CONC 31.9 G/DL (33.0-37.0); MEAN CORPUSCULAR VOLUME 87.5 FL (81.0-99.0); MEAN PLATELET VOLUME 9.4 FL (7.4-10.4); PLATELET COUNT 355 /CUMM (130-400); RED BLOOD CELL CT 3.63 /CUMM (4.20-5.40)
[2017-05-11 05:10] LABS: PT 29.6 SEC (9.4-12.5)
[2017-05-11 05:19] LABS: HEMATOCRIT 31.8 % (37-47)
[2017-05-11 05:23] LABS: WHITE BLOOD CELL COUNT 37.8 /CUMM (4.8-10.8)
[2017-05-11 07:10] VITALS: BP 132/60
[2017-05-11 14:24] VITALS: BP 108/61
[2017-05-11 20:33] VITALS: BP 138/50
--- NOTE | 2017-05-11 21:41 | Event Note ---
Event Note Event Note: Rapid response was called around 15 hours when the patient was found to be unresponsive and not following commands with pinpoint pupils hypotensive with blood pressure of 80/40 heart rate of 80 and trained him blood sugar of 155. Patient received 0.4 mg of Narcan and immediately became more responsive. Patient received 500 mL of normal saline bolus after which blood pressure picked up nicely to 108/61. Half an hour after the episode we wanted to get ABG to find out her status but the patient the refused. The daughter the patient was called and updated of the event. About one hour after the episode the patient was fully alert, communicating as at baseline.
[2017-05-12] VITALS: BP 110/50
[2017-05-12 07:24] VITALS: BP 138/57
[2017-05-12 08:43] LABS: ABSOLUTE BASOPHIL COUNT 0.1 /CUMM (0.0-0.2); ABSOLUTE EOSINOPHIL COUNT 0.2 /CUMM (0.0-0.7); ABSOLUTE GRANULOCYTE CT 16.3 /CUMM (1.4-6.5); ABSOLUTE LYMPH COUNT 1.3 /CUMM (1.2-3.4); ABSOLUTE MONOCYTE COUNT 0.9 /CUMM (0.10-0.60); BASOPHIL % 0.4 % (0.0-2.0); EOSINOPHIL % 0.8 % (0-5); GRANULOCYTE % 87.2 % (42.2-75.2); HEMATOCRIT 27.4 % (37-47); MEAN CORPUSCULAR HGB 27.7 PG (27.0-31.0); MEAN CORPUSCULAR HGB CONC 31.6 G/DL (33.0-37.0); MEAN CORPUSCULAR VOLUME 87.8 FL (81.0-99.0); MEAN PLATELET VOLUME 9.9 FL (7.4-10.4); PLATELET COUNT 317 /CUMM (130-400); RBC DISTRIBUTION WIDTH 14.9 % (11.5-14.5); RED BLOOD CELL CT 3.12 /CUMM (4.20-5.40)
[2017-05-12 08:59] LABS: PT 17.5 SEC (9.4-12.5)
--- NOTE | 2017-05-12 09:03 | PN- Housestaff ---
Subjective Follow-up For: Urinary tract infection Leukocytosis Previous diagnosis GI malignancy Subjective: Overnight there were no acute events. Patient is stable. She denies any fevers, chills, chest pain or shortness of breath. Review of Systems Constitutional: Denies: see HPI. Objective Last 24 Hrs of Vital Signs/I&O Vital Signs Date Time Temp Pulse Resp B/P B/P Pulse O2 O2 Flow FiO2 Mean Ox Delivery Rate 05/12 1006 80 164/60 05/12 0724 98.8 79 20 138/57 95 05/12 0000 110/50 96 Room Air 05/11 2153 Room Air Intake & Output 05/12 1600 05/12 0800 05/12 0000 Intake Total 730 93509 Output Total Balance 730 91163 Intake, IV 30 45909 Intake, Oral 700 350 Number 1 2 Bowel Movements Physical Exam General Appearance: Alert, Oriented X3, Cooperative Other Physical Findings: General Appearance: Alert, No acute distress. Easily arousable Skin Temp/Moisture Exam: Warm/Dry Sepsis Skin Exam (color): Normal for Ethnicity HEENT: Mucous Membr. moist/pink, interval improvement in moisture of the oral mucous membranes Cardiovascular: Regular Rate, Normal S1, Normal S2 Lungs: Normal Air Movement, diminished breath sounds in the basilar regions bilaterally Abdomen: Soft, tenderness to palpation of the lower right and left quadrants Extremities: left above-knee amputation. Skin warm to touch Current Medications: Current Medications Sig/Majo Start time Last Medication Dose Route Stop Time Status Admin Apixaban 5 MG BID 05/10 2200 AC 05/12 PO 0958 Atorvastatin Calcium 20 MG QPM 05/10 2200 AC 05/10 PO 2225 Carbidopa/Levodopa 0.5 TAB TID 05/10 220 AC 05/12 PO 1532 Docusate Sodium 100 MG BID PRN 05/10 2000 AC PO Ferrous Sulfate 325 MG DAILY 05/11 1000 AC 05/12 PO 0958 Gabapentin 300 MG TID 05/10 2200 AC 05/12 PO 1532 Insulin Aspart 0 TIDAC 05/11 08 AC 05/12 SC 1614 Insulin Detemir 13 UNITS BID 05/12 1000 AC 05/12 SC 0959 Insulin Detemir 26 UNITS DAILY 05/11 1000 DC 05/11 SC 0904 Ketorolac 15 MG Q8P PRN 05/11 1030 AC 05/12 Tromethamine IV 1953 Lorazepam 1 MG Q6H PRN 05/10 2000 AC PO Losartan Potassium 50 MG DAILY 05/11 1000 AC 05/12 PO 0958 Meropenem 1 GM Q8H 05/11 1100 AC 05/12 IV 1746 Mirtazapine 30 MG AT BEDTIME 05/10 2200 AC 05/10 PO 2225 Omeprazole 40 MG DAILY AC 05/11 0700 AC 05/12 PO 0511 Polyethylene Glycol 17 GM DAILY 05/11 1000 AC PO Potassium Chloride 20 MEQ ONCE ONE 05/12 1015 DC 05/12 PO 05/12 1016 1030 Senna 187 MG AT BEDTIME PRN 05/10 2000 AC PO Trazodone HCl 50 MG QPM 05/10 2200 AC 05/10 PO 2225 Venlafaxine HCl 225 MG 0800 05/11 08 AC 05/12 PO 0838 Last 24 Hrs of Lab/Bradley Results Last 24 Hrs of Labs/Mics: Laboratory Tests 05/12/1714: Troponin I Cancelled 05/12/17709: Anion Gap 10, Estimated GFR > 60, BUN/Creatinine Ratio 41.4 H, Troponin I < 0.01, PT 17.5 H, INR 1.68 H, CBC w Diff NO MAN DIFF REQ, RBC 3.12 L, MCV 87.8 , MCH 27.7, RDW 14.9 H, MPV 9.9, Gran % 87.2 H, Lymphocytes % 7.0 L, Monocytes % 4.6, Eosinophils % 0.8, Basophils % 0.4, Absolute Granulocytes 16.3 H, Absolute Lymphocytes 1.3, Absolute Monocytes 0.9 H, Absolute Eosinophils 0.2 , Absolute Basophils 0.1, PUBS MCHC 31.6 L Assessment/Plan Assessment: 77-year-old lady with a PMH of diabetes complicated with neuropathy, CAD/CABG status post stenting, chronic anxiety, vascular dementia, peripheral vascular disease, left femoral-popliteal bypass with failed grafting and resultant left above-knee amputation, hypertension, history of GI bleed in 2015 found to have sessile polyp and a mass in the ascending colon that came back positive on biopsy for villous adenoma with superficial invasive adenocarcinoma for which the patient opted NOT to be notified but however did find out a few months ago. Patient decided not to have any surgical intervention and has since been residing at [facility]. Patient presented to [place] with complaints of one-week duration left lower abdominal pain. CT findings as indicated above. Problem list: 1. UTI 2. Leukocytosis 3. Previously diagnosed GI malignancy: Current CT findings showing Focal narrowing in the ascending colon near hepatic flexure, narrowing in sigmoid colon, lesion in lower lobe of liver 4. Diabetes 5. History of anxiety 7. History of vascular dementia 8. Peripheral neuropathy 1. UTI * Follow-up urine cultures. We'll continue with ceftaz 1 g IV Q8 2. Leukocytosis with elevated lactic acid * Possibly secondary to UTI vs the underlying malignancy * Interval improvement in leukocytosis down to 37.8 from 46.5 * Persistent lactic acid elevation may be due to an ongoing ischemic picture which at this time will not be pursued. If evidence of hemodynamic instability family will be notified Syncope: Pateint had unresponsive episode yesterday overnight, Patient was assessed by the night team, she was sleeping comfortably with no hemodynamic instability. She received Narcan earlier yesterday BUT that was given 24 hours after 4mg of morphine. Patient seen by this am who recommend to work her up for syncopal attack. Will order stat Troponin, EKG, echo and transfer the patient to telemetry floor. 3. Previously diagnosed GI malignancy Current CT findings showing Focal narrowing in the ascending colon near hepatic flexure, narrowing in sigmoid colon, lesion in lower lobe of liver * Per family discussion, no plan for any intervention. If evidence of obstruction or complication from underlying malignancy aren't present, notify family immediately 4. Anemia * New onset drop in H&H to 10.1/31.8 * Unclear if this is secondary to dilutional effect in the setting of fluid resuscitation versus a GI bleed. Will defer any aggressive intervention/workup and monitor for now 5. Diabetes * Home dose of Levemir is 52 units daily * In the setting of hypoglycemic episode, poor oral intake at this time we will decrease long-acting scale by 50%, Continue with D5 normal saline at 125 mL an hour * Continue with low-dose sliding scale 6. History of anxiety * Continue with lorazepam 1 mg Q6 7. History of vascular dementia * Continue with Sinemet 25/100 mg half tab 3 times a day 8. Peripheral neuropathy * Continue with gabapentin 300 mg 3 times a day Problem List: 1. UTI (urinary tract infection) 2. Villous adenoma of colon Pain Ratin Pain Location: None Pain Goal: Remain pain free Pain Plan: Pain Pathwy Tomorrow's Labs & Rationales: CBC,BEP
--- NOTE | 2017-05-12 09:08 | PN- Att Addend ---
Attending Addendum Attending Brief Note Patient seen and examined. Apparently yesterday around 3 PM she had an unresponsive episode and was hypotensive. She was given a dose of Narcan and then subsequently returned to normal mental status. It is unclear if the Narcan contributed to her return to normal mental status since her only dose of morphine was 4 mg of IV morphine given to her 24 hours prior in the emergency room. This morning I met her lying comfortably in bed eating breakfast. She was alert and oriented 3 and I was able to engage in any extensive conversation. She had no slurring of her speech. She did not recall yesterday's events. She denies any episodes of syncope in the past. She denied any dizziness or lightheadedness. She did admit to having palpitations but states that this is chronic and is on and off. Since that episode her blood pressure has been stable. She has remained afebrile during this admission. She denies any further abdominal pain. She got only one dose of Toradol yesterday. Vital Signs Date Time Temp Pulse Resp B/P B/P Pulse O2 O2 Flow FiO2 Mean Ox Delivery Rate 05/12 0724 98.8 79 20 138/57 95 05/12 0000 110/50 96 Room Air / 2153 Room Air / 2033 98.6 77 18 138/50 95 Room Air 07/08 1600 93 Room Air / 1424 99.7 81 18 108/61 94 Room Air Gen. appearance: Alert and oriented 3. Not in any acute distress Heart: S1-S2 irregular nodule normal. Neck: Supple with no jugular venous distention Lungs: Good entry bilaterally, clear to auscultation Abdomen: Soft, nontender with normal bowel sounds Extremity: No pedal edema right lower extremity. Problems: 1. Unresponsive episode 2. Sepsis secondary to urinary tract infection 3. Atrial fibrillation on anticoagulation 4. Hypotension; now resolved 5. Depression: Clinically stable Plan: -Given her unresponsive episode yesterday with no clear etiology and her underlying history of atrial fibrillation would recommend telemetry monitoring for the next 24-48 hours. -Obtain 12-lead EKG. Check echocardiogram. -OK to continue cefazolin for now with close monitoring of her blood pressure. -Continue IV meropenem. Obtain ID consultation in the morning for antibiotic duration since she has no options for oral antibiotic therapy. -Follow-up CBC. Follow-up stool for C. difficile. Fortunately she is not having any episodes of diarrhea. -She denies any further abdominal pain. She has no tenderness on examination. Will defer any further abdominal imaging for now unless she develops abdominal pain once more. -Patient is on Levemir insulin 52 units at home. She was hypoglycemic on presentation to the ER. She was started on 26 units of Levemir in the morning and started on dextrose infusion. Her blood glucose this morning was in the 90s. Appetite is not great. She had only to support for this morning. We'll decrease her insulin to 30 units twice daily and keep a close eye on her glucose levels.
--- NOTE | 2017-05-12 09:22 | Event Note ---
Event Note Event Note: Pateint had unresponsive episode yesterday overnight, Patient was assessed by the night team, she was sleeping comfortably with no hemodynamic instability. She received Narcan earlier yesterday BUT that was given 24 hours after 4mg of morphine. Patient seen by this am who recommend to work her up for syncopal attack. Will order stat Troponin, EKG, echo and transfer the patient to telemetry floor.
[2017-05-12 09:44] LABS: WHITE BLOOD CELL COUNT 18.7 /CUMM (4.8-10.8)
[2017-05-12 10:06] VITALS: BP 164/60
[2017-05-12 23:11] VITALS: BP 142/68
[2017-05-13 07:19] VITALS: BP 170/60
--- NOTE | 2017-05-13 08:45 | PN- Housestaff ---
See Addendum Subjective Follow-up For: Urinary tract infection Leukocytosis Previous diagnosis GI malignancy Complaints: pain scale (0-10) Tele-Events Since Last Visit: Normal sinus rhythm overnight 71-77 no events Subjective: Patient was examined bedside. She states that she is feeling pretty good. She complains of some shortness of breath that is better on lying down. She denies any chest pain dizziness has not had a bowel movement but has been urinating about every hour. Overnight she took 2 tablets of Toradol for pain in her back and abdomen. Before this she had not been able to sleep but this did help. Review of Systems Constitutional: Reports: no symptoms. EENTM: Reports: no symptoms. Cardiovascular: Reports: no symptoms. Respiratory: Reports: cough, short of breath. Gastrointestinal: Reports: abdominal pain. Denies: constipation, diarrhea, nausea, vomiting. Genitourinary: Reports: no symptoms. Musculoskeletal: Reports: back pain. Skin: Reports: change in skin color (REDNESS IN COCCYX AREA), erythema. Neurological/Psychological: Reports: no symptoms. Hematologic/Endocrine: Reports: no symptoms. Immunologic/Allergic: Reports: no symptoms. Objective Last 24 Hrs of Vital Signs/I&O Vital Signs Date Time Temp Pulse Resp B/P B/P Pulse O2 O2 Flow FiO2 Mean Ox Delivery Rate 05/13 0719 98.2 73 20 170/60 95 Room Air 05/12 2311 98.6 74 20 142/68 94 Room Air Intake & Output 05/13 1600 05/13 0800 07 0000 Intake Total 480 100 100 Output Total Balance 480 100 100 Intake, Oral 480 100 100 Number 1 Bowel Movements Physical Exam General Appearance: Alert, Oriented X3, Cooperative, No Acute Distress Skin: PATIENT HAS ERYTHEMA OF THE COCCYGEAL REGION CONCERNING FOR DEVELOPING BEDSORE Skin Temp/Moisture Exam: Warm/Dry Sepsis Skin Exam (color): Normal for Ethnicity HEENT: Atraumatic, PERRLA, EOMI, Mucous Membr. moist/pink Neck: Supple Cardiovascular: Regular Rate, Normal S1, Normal S2, No Murmurs, Gallops, Rubs Lungs: Clear to Auscultation, Normal Air Movement Abdomen: Normal Bowel Sounds, Soft, RIGHT UPPER QUADRANT MASS PALPATED, TENDERNESS ON PALPATION. aLSO TENDERNESS AND FULLNESS FELT IN THE LEFT LOWER QUADRANT. sEVERAL OLD SCARS FROM PREVIOUS CHOLECYSTECTOMY AND HYSTERECTOMY Neurological: Normal Speech Extremities: No Clubbing, No Cyanosis, No Edema, PATIENT HAS LEFT BELOW THE KNEE AMPUTATION. RIGHT LEG HAS PAIN ON PALPATION. Vascular: Normal Pulses, Pulses Symmetrical Sepsis Peripheral Pulse Location: Radial Sepsis Peripheral Pulse Exam: Normal Current Medications: Current Medications Sig/Majo Start time Last Medication Dose Route Stop Time Status Admin Apixaban 5 MG BID 05/10 2200 AC 05/13 PO 0833 Atorvastatin Calcium 20 MG QPM 05/10 2200 AC 05/12 PO 204 Carbidopa/Levodopa 0.5 TAB TID 05/10 2200 AC 05/13 PO 0834 Docusate Sodium 100 MG BID PRN 05/10 2000 AC PO Ferrous Sulfate 325 MG DAILY 05/11 1000 AC 05/13 PO 0833 Gabapentin 300 MG TID 05/10 2200 AC 05/13 PO 0833 Insulin Aspart 0 TIDAC 05/11 08 AC 05/13 SC 1149 Insulin Detemir 13 UNITS BID 05/12 1000 AC 05/13 SC 0833 Ketorolac 15 MG Q8P PRN 05/11 1030 AC 05/13 Tromethamine IV 0622 Lorazepam 1 MG Q6H PRN 05/10 2000 AC 05/13 PO 1123 Losartan Potassium 50 MG DAILY 05/11 1000 AC 05/13 PO 0833 Meropenem 1 GM Q8H 05/11 1100 AC 05/13 IV 1122 Mirtazapine 30 MG AT BEDTIME 05/10 2200 AC 05/12 PO 2047 Omeprazole 40 MG DAILY AC 05/11 700 AC 05/13 PO 0621 Polyethylene Glycol 17 GM DAILY 05/11 1000 AC 05/13 PO 0833 Senna 187 MG AT BEDTIME PRN 05/10 2000 AC PO Trazodone HCl 50 MG QPM 05/10 2200 AC 05/12 PO 2047 Venlafaxine HCl 225 MG 0805/11 08 AC 05/13 PO 0832 Last 24 Hrs of Lab/Bradley Results Last 24 Hrs of Labs/Mics: Laboratory Tests 05/13/17 0817: Anion Gap 9, Estimated GFR > 60, BUN/Creatinine Ratio 38.3 H, CBC w Diff NO MAN DIFF REQ, RBC 3.22 L, MCV 87.6, MCH 27.8, RDW 14.9 H, MPV 9.6, Gran % 86.6 H, Lymphocytes % 7.7 L, Monocytes % 5.2, Eosinophils % 0, Basophils % 0.5, Absolute Granulocytes 11.2 H, Absolute Lymphocytes 1.0 L, Absolute Monocytes 0.7 H, Absolute Eosinophils 0, Absolute Basophils 0.1, PUBS MCHC 31.7 L Microbiology 05/13 0937 URINE ROUT: Urine Culture - COLB Orders Radiology Findings: CT abdomen and pelvis with contrast IMPRESSION: There is a concerning area of focal narrowing of the ascending colon close to the hepatic flexure. A mass may be present. Malignancy could give this appearance. Redundant areas of narrowing in the sigmoid colon are of uncertain significance. There is artifact but there is an apparent lesion involving the lower right lobe the liver. Previous remote study 01/29/12 has become available and this appears unchanged. The attenuation along the margin of the left lobe the liver is also abnormal and appears unchanged. Recommend further evaluation. This might include colonoscopy. The timing requires clinical correlation. Assessment/Plan Assessment: 77-year-old lady with a PMH of diabetes complicated with neuropathy, CAD/CABG status post stenting, chronic anxiety, vascular dementia, peripheral vascular disease, left femoral-popliteal bypass with failed grafting and resultant left above-knee amputation, hypertension, history of GI bleed in 2014 found to have sessile polyp and a mass in the ascending colon that came back positive on biopsy for villous adenoma with superficial invasive adenocarcinoma for which the patient opted NOT to be notified but however did find out a few months ago. Patient decided not to have any surgical intervention and has since been residing at [facility]. Patient presented to [place] with complaints of one-week duration left lower abdominal pain. CT findings as indicated above. Patient had a syncopal episode on May 12 IN [facility]. She was given a dose of Narcan and subsequently returned to normal mental status. It is unclear if the Narcan contributed to her return to normal mental status since her only dose of morphine was 4 mg of IV morphine given to her 24 hours prior to the emergency room. She had no slurring of her speech but she did not recall the episode. She admitted to having palpitations but states that that was chronic. Patient was transferred to the telemetry floor for workup of her syncopal attack. Problem list: 0. Syncope 1. UTI 2. Leukocytosis 3. Previously diagnosed GI malignancy: Current CT findings showing Focal narrowing in the ascending colon near hepatic flexure, narrowing in sigmoid colon, lesion in lower lobe of liver 4. Diabetes 5. History of anxiety 7. History of vascular dementia 8. Peripheral neuropathy 0. Syncope: Patient had negative troponins, EKG was normal. Echo is pending. Patient has history of A. fib. 1. UTI * Urine cultures are not logged into the system, however patient intake note states that a urine culture taken on May 09 showed gram-negative rods. Previous cultures from January 2017 grew Escherichia coli and Pseudomonas. Urinalysis was also not taken. They are ordered now but since patient is currently on antibiotics they're likely to not correctly reflect her prior infective state. We'll continue with ceftaz 1 g IV Q8. * Continue IV meropenem. Obtain ID consultation in the morning for antibiotic as there is a question as to why she is on meropenem 2. Leukocytosis with elevated lactic acid * Possibly secondary to UTI vs the underlying malignancy * Interval improvement in leukocytosis down to 13.0 from 46.5 * Persistent lactic acid elevation from 2-3 may be due to an ongoing ischemic picture which at this time will not be pursued. If evidence of hemodynamic instability family will be notified 3. Previously diagnosed GI malignancy Current CT findings showing Focal narrowing in the ascending colon near hepatic flexure, narrowing in sigmoid colon, lesion in lower lobe of liver * Per family discussion, no plan for any intervention. If evidence of obstruction or complication from underlying malignancy aren't present, notify family immediately 4. Anemia * New onset drop in hemoglobin from 12.2 on May 10 28.7 on May 12 and now on May 13, 8.9 * Unclear if this is secondary to dilutional effect in the setting of fluid resuscitation versus a GI bleed. Will defer any aggressive intervention/workup and monitor for now 5. Diabetes * Home dose of Levemir is 52 units daily * Blood glucose last night was 50. She has had episodes of hypoglycemia and is now to be put on Levemir 13 units twice a day * Continue with low-dose sliding scale 6. History of anxiety * Continue with lorazepam 1 mg Q6 7. History of vascular dementia * Continue with Sinemet 25/100 mg half tab 3 times a day 8. Peripheral neuropathy * Continue with gabapentin 300 mg 3 times a day Anticoagulation with ELIQUIS Is on trazodone for sleep related issues Toradol for pain Can send her back to [facility] as she is currently stable. Problem List: 1. Diabetes mellitus type 2 2. Paroxysmal atrial fibrillation 3. Peripheral vascular disease 4. UTI 5. GI malignancy 6. HTN (hypertension) 7. HLD (hyperlipidemia) Pain Ratin Pain Location: Pain is located in her back and abdomen Pain Goal: Pain 4 or less Pain Plan: Patient is on Toradol for pain Tomorrow's Labs & Rationales: Patient is to be transferred back to [facility] DVT/Prophylaxis: pharmacological
[2017-05-13 09:32] LABS: ABSOLUTE BASOPHIL COUNT 0.1 /CUMM (0.0-0.2); ABSOLUTE EOSINOPHIL COUNT 0 /CUMM (0.0-0.7); ABSOLUTE GRANULOCYTE CT 11.2 /CUMM (1.4-6.5); ABSOLUTE MONOCYTE COUNT 0.7 /CUMM (0.10-0.60); BASOPHIL % 0.5 % (0.0-2.0); EOSINOPHIL % 0 % (0-5); HEMATOCRIT 28.2 % (37-47); MEAN CORPUSCULAR HGB 27.8 PG (27.0-31.0); MEAN CORPUSCULAR HGB CONC 31.7 G/DL (33.0-37.0); MEAN CORPUSCULAR VOLUME 87.6 FL (81.0-99.0); MEAN PLATELET VOLUME 9.6 FL (7.4-10.4); PLATELET COUNT 313 /CUMM (130-400); RBC DISTRIBUTION WIDTH 14.9 % (11.5-14.5); RED BLOOD CELL CT 3.22 /CUMM (4.20-5.40)
[2017-05-13 10:13] LABS: GRANULOCYTE % 86.6 % (42.2-75.2)
[2017-05-13 15:17] VITALS: BP 112/60
--- NOTE | 2017-05-13 17:17 | Cons- Infect Disease ---
General Information and HPI Consulting Request Date of Consult: 05/13/17 Requested By: TAVON WEN MD Reason for Consult: Positive urine culture for ESBL producing Escherichia coli Source of Information: patient, old records Exam Limitations: confusion, dementia History of Present Illness: This is a 77-year-old woman long term resident with a history of dementia, hypertension, coronary artery disease, status post stenting and CABG, diabetes and peripheral vascular disease, status post a left femoropopliteal bypass 2 years prior to admission, complicated by thrombosis, requiring a left AKA, and infection secondary to strep bovis, requiring a four-week course of IV antibiotics, diagnosed at that time with a superficial invasive adenocarcinoma after a GI bleed, with no surgical intervention, admitted on May 10 with increasing abdominal pain over the past month prior to admission, associated with nausea without vomiting or change in her bowels and without any fevers, chills or urinary symptoms. On admission she was afebrile. Laboratory data revealed a white blood cell count of 47,000, BUN/creatinine 40 and 0.7, lactic acid 2.5, with normal liver enzymes. CT of the abdomen and pelvis with contrast revealed a focal narrowing of the ascending colon close to the hepatic flexure. She was given Ceftriaxone and Flagyl. On May 11 a urine culture sent on the day prior to admission was positive for ESBL producing Escherichia coli, and she was changed to Meropenem. Later that day a rapid response was called after she was found to be unresponsive with a blood pressure of 80/40. She was given Narcan with a good response. She has been afebrile since admission. Her white blood cell count has improved dramatically. She does report some improvement in her abdominal pain. She continues to deny any urinary symptoms. Allergies/Medications Allergies: Coded Allergies: adhesive tape (Intermediate, RASH 10/15/16) prochlorperazine (From Compazine) (Intermediate, SWELLING 10/15/16) warfarin (Intermediate, AMS 10/15/16) Home Med List: Apixaban (Eliquis) 5 MG TABLET 1 TAB PO BID BLOOD THINNER (Reported) Ascorbate Calcium (Vitamin C) 500 MG TABLET 1 TAB PO DAILY VITAMIN SUPPORT ( Reported) Ascorbic Acid (Vitamin C) 500 MG CAPSULE.ER 1 CAP PO DAILY VITAMIN (Reported) Atorvastatin Calcium (Lipitor) 20 MG TABLET 1 TAB PO QPM CHOLESTEROL ( Reported) Carbidopa/Levodopa (Carbidopa-Levodopa 25-100 Tab) 25 MG-100 MG TABLET 0.5 TAB PO TID PARKINSONS (Reported) Enoxaparin Sodium (Lovenox) 40 MG/0.4 ML SYRINGE 0.4 ML SC DAILY PREVENT BLOOD CLOT (Reported) Ferrous Sulfate 325 MG (65 MG IRON) TABLET 1 TAB PO DAILY SUPPLEMENT ( Reported) Gabapentin (Neurontin) 300 MG CAPSULE 1 CAP PO TID NEUROPATHY (Reported) Insulin Detemir (Levemir) 100 UNIT/ML VIAL 52 UNIT SC DAILY DM (Reported) Insulin Lispro (Humalog) 100 UNIT/ML CARTRIDGE DM (Reported) FS:151-200= 4 UNITS 201-250= 6 UNITS 251-300= 8 UNITS 301-350= 10 UNITS 351-400= 12 UNITS 401 AND GREATER= 14 UNITS AND CALL MD Lactulose 10 GRAM/15 ML SOLUTION 15 ML PO DAILY GI (Reported) Lorazepam (Ativan) 1 MG TABLET 1 TAB PO Q6H PRN ANXIETY (Reported) Losartan Potassium (Cozaar) 50 MG TABLET 1 TAB PO DAILY HEART (Reported) Metformin HCl 1,000 MG TABLET 1 TAB PO BID DM (Reported) Mirtazapine (Remeron) 45 MG TABLET 0.5 TAB PO QPM DEPRESSION (Reported) Multivitamin (Daily Multiple Vitamin) 1 EACH TABLET 1 TAB PO DAILY VITAMIN ( Reported) Oxycodone HCl 10 MG TABLET 1 TAB PO Q2 HRS NEEDED PRN PAIN (Reported) Pantoprazole Sodium 40 MG TABLET.DR 1 TAB PO BID GI (Reported) Polyethylene Glycol 3350 (Gavilax) 17 GRAM POWD.PACK 17 GM PO DAILY GI ( Reported) Sennosides (Senna) 8.6 MG TABLET 2 TAB PO BID CONSTIPATION (Reported) Trazodone HCl 50 MG TABLET 1 TAB PO QPM SLEEP (Reported) Venlafaxine HCl (Venlafaxine HCl ER) 225 MG TAB.ER.24 1 TAB PO DAILY DEPRESSION (Reported) Past History Travel History Traveled to [place] past 21 day No Medical History Neurological: CVA, dementia, TIA, PERHIPERAL NEUROPATHY EENT: NONE Cardiovascular: AFIB, CAD (status post stents), hypertension, hyperlipidemia, PVD Respiratory: NONE Gastrointestinal: ULCERS CHOLECYSTECTOMY Hepatic: NONE Renal: NONE Musculoskeletal: disk herniation, degen joint disease, osteoarthritis Psychiatric: anxiety, depression, opioid dependence, PANIC ATTACKS please see the HPI, above. Endocrine: diabetes Blood Disorders: NONE Cancer(s): NONE FLOOR SWEEPER/Reproductive: HYSTERECTOMY History of MRSA: No History of VRE: No History of CDIFF: No Isolation History: Contact Surgical History Surgical History: CABG, cholecystectomy, hip replacement (left hip), knee replacement (left knee), laminectomy, FEM-POP BYPASS L LEG, status post left AKA Family History Relations & Conditions If Any: MOTHER (lung ca). FATHER (esphageal ca). SISTER (diabetes). Psychosocial History Services at Home: None Primary Language: Greek Smoking Status: Former Smoker ETOH Use: denies use Illicit Drug Use: denies illicit drug use Living Will? yes Power of Chef Concierge/HCP? yes Name of POA/HCP: Unable to contact Radha Smith Review of Systems Review of Systems Cardiovascular: Reports: chest pain. Respiratory: Reports: cough, short of breath. All Other Systems: Reviewed and Negative Comments Unreliable review of systems Exam & Diagnostic Data Last 24 Hrs of Vital Signs/I&O Vital Signs Date Time Temp Pulse Resp B/P B/P Pulse O2 O2 Flow FiO2 Mean Ox Delivery Rate 05/13 1633 Room Air 05/13 1517 98.2 81 20 112/60 96 Room Air 05/13 0719 98.2 73 20 170/60 95 Room Air 05/12 2311 98.6 74 20 142/68 94 Room Air Intake & Output 05/13 1600 05/13 0800 05/13 0000 Intake Total 660 100 100 Output Total Balance 660 100 100 Intake, Oral 660 100 100 Number 1 Bowel Movements Physical Exam Other Physical Findings: She is awake and alert, confused but oriented 3 and in no acute distress. She is afebrile. Skin reveals no rash. HEENT exam is negative. Neck is supple with no adenopathy. Lungs are clear. Heart regular rhythm with a 1/6 systolic ejection murmur. Abdomen is soft, tender to palpation diffusely, right greater than left, with no guarding or rebound, with positive bowel sounds. Back mild left CVA tenderness. Extremities status post left AKA; no cyanosis, clubbing or edema of the right leg. Neuro is without focality. Last 24 Hours of Lab Results: Laboratory Tests 05/13 0817 Chemistry Sodium (137 - 145 mmol/L) 145 Potassium (3.5 - 5.1 mmol/L) 3.5 Chloride (98 - 107 mmol/L) 108 H Carbon Dioxide (22 - 30 mmol/L) 28 Anion Gap (5 - 16) 9 BUN (7 - 17 mg/dL) 23 H Creatinine (0.5 - 1.0 mg/dL) 0.6 Estimated GFR (>60 ml/min) > 60 BUN/Creatinine Ratio (7 - 25 %) 38.3 H Hematology CBC w Diff NO MAN DIFF REQ WBC (4.8 - 10.8 /CUMM) 13.0 H RBC (4.20 - 5.40 /CUMM) 3.22 L Hgb (12.0 - 16.0 G/DL) 8.9 L Hct (37 - 47 %) 28.2 L MCV (81.0 - 99.0 FL) 87.6 MCH (27.0 - 31.0 PG) 27.8 RDW (11.5 - 14.5 %) 14.9 H Plt Count (130 - 400 /CUMM) 313 MPV (7.4 - 10.4 FL) 9.6 Gran % (42.2 - 75.2 %) 86.6 H Lymphocytes % (20.5 - 51.1 %) 7.7 L Monocytes % (1.7 - 9.3 %) 5.2 Eosinophils % (0 - 5 %) 0 Basophils % (0.0 - 2.0 %) 0.5 Absolute Granulocytes (1.4 - 6.5 /CUMM) 11.2 H Absolute Lymphocytes (1.2 - 3.4 /CUMM) 1.0 L Absolute Monocytes (0.10 - 0.60 /CUMM) 0.7 H Absolute Eosinophils (0.0 - 0.7 /CUMM) 0 Absolute Basophils (0.0 - 0.2 /CUMM) 0.1 PUBS MCHC (33.0 - 37.0 G/DL) 31.7 L Last 24 Hours of Bradley Results: Urine culture May 09 sent from the long term greater than 100,000 colonies of ESBL producing Escherichia coli sensitive to Gentamicin, Meropenem and Nitrofurantoin Blood cultures 2 May 10 negative Stool C. difficile May 11 negative Diagnostic Data Recent Imaging Findings: CT of the abdomen and pelvis with IV contrast May 10 revealed circumferential focal narrowing with wall thickening in the region of the hepatic flexure Assessment/Plan Assessment/Plan Impression: This is a 77-year-old woman with mild dementia, hypertension, coronary artery disease, diabetes, peripheral vascular disease and adenocarcinoma of the colon, with no treatment to date, admitted on May 10 with increasing abdominal pain and nausea for the past month prior to admission, found to be afebrile with a marked leukocytosis which appears to be resolving with Meropenem for ESBL producing Escherichia coli isolated from a urine culture obtained on the day prior to admission. Though she has no urinary symptoms her white blood cell count has decreased on Meropenem and, therefore, feel that this will need to be continued for treatment of a possible pyelonephritis. She does have mild left CVA tenderness, which could be secondary to this. Her primary complaint is abdominal pain and tenderness, which may be related to her untreated GI malignancy, and this may warrant further evaluation. Suggestion: 1. Would pursue further evaluation/management of her underlying malignancy if she is agreeable 2. Would proceed with placement of a PICC 3. Continue Meropenem to plan on a 14 day course of treatment Consult Acknowledgment - Thank you for your consult request.
[2017-05-13 21:55] VITALS: BP 122/62
[2017-05-13 22:46] VITALS: BP 172/60
[2017-05-14 07:07] VITALS: BP 156/86
--- NOTE | 2017-05-14 08:23 | PN- Housestaff ---
See Addendum Subjective Follow-up For: Urinary tract infection Leukocytosis Previous diagnosis GI malignancy Syncopal episode Complaints: pain scale (0-10) Tele-Events Since Last Visit: Off telemetry Subjective: Patient was examined bedside. She states that she is feeling pretty good again. She complains of some stomach pain right sided. She denies headache chest pain shortness of breath dizziness. Bowel movements have been normal. She complains of dysuria that is worse today. She also complains of some lower back pain. Review of Systems Constitutional: Reports: weakness. EENTM: Reports: no symptoms. Cardiovascular: Denies: chest pain, edema, orthopena, palpitations, peripheral edema, syncope. Respiratory: Reports: cough. Denies: orthopnea, short of breath, stridor, wheezing. Gastrointestinal: Reports: abdominal pain. Denies: constipation, diarrhea. Genitourinary: Reports: dysuria. Musculoskeletal: Reports: back pain. Skin: Reports: no symptoms. Neurological/Psychological: Reports: no symptoms. Hematologic/Endocrine: Reports: no symptoms. Immunologic/Allergic: Reports: no symptoms. Objective Last 24 Hrs of Vital Signs/I&O Vital Signs Date Time Temp Pulse Resp B/P B/P Pulse O2 O2 Flow FiO2 Mean Ox Delivery Rate 05/14 0707 97.8 80 20 156/86 96 Room Air 05/13 2246 98.3 68 20 172/60 98 Room Air 05/13 2155 99.2 77 20 122/62 95 Room Air 05/13 1633 Room Air 05/13 1517 98.2 81 20 112/60 96 Room Air Intake & Output 05/14 1600 05/14 0800 05/14 0000 Intake Total 50 490 Output Total Balance 50 490 Intake, IV 40 Intake, Oral 50 450 Number 1 Bowel Movements Patient 160 lb Weight Physical Exam General Appearance: Alert, Oriented X3, Cooperative, No Acute Distress Skin: No Rashes, No Breakdown Skin Temp/Moisture Exam: Warm/Dry Sepsis Skin Exam (color): Normal for Ethnicity HEENT: Atraumatic, PERRLA, EOMI, Mucous Membr. moist/pink Neck: Supple Cardiovascular: Regular Rate, Normal S1, Normal S2, No Murmurs, Gallops, Rubs Lungs: Clear to Auscultation, Normal Air Movement Abdomen: Normal Bowel Sounds, Soft, RIGHT UPPER QUADRANT MASS PALPATED, TENDERNESS ON PALPATION. TENDERNESS AND FULLNESS FELT IN THE LEFT LOWER QUADRANT, SEVERAL OLD SCARS FROM PREVIOUS CHOLECYSTECTOMY AND HYSTERECTOMY Neurological: Normal Speech, Sensation Intact Extremities: No Clubbing, No Cyanosis, No Edema, PATIENT HAS LEFT BELOW THE KNEE AMPUTATION, RIGHT LEG IS PAINFUL ON PALPATION Vascular: Normal Pulses, Pulses Symmetrical Sepsis Peripheral Pulse Location: Radial Sepsis Peripheral Pulse Exam: Normal Current Medications: Current Medications Sig/Majo Start time Last Medication Dose Route Stop Time Status Admin Apixaban 5 MG BID 05/10 2200 AC 05/14 PO 08 Atorvastatin Calcium 20 MG QPM 05/10 220 AC 05/13 PO 2050 Carbidopa/Levodopa 0.5 TAB TID 05/10 220 AC 05/14 PO 08 Docusate Sodium 100 MG BID PRN 05/10 2000 AC PO Ferrous Sulfate 325 MG DAILY 05/11 1000 AC 05/14 PO 0808 Gabapentin 300 MG TID 05/10 220 AC 05/14 PO 0809 Insulin Aspart 0 TIDAC 05/11 08 AC 05/14 SC 0807 Insulin Detemir 13 UNITS BID 05/12 1000 AC 05/14 SC 0810 Ketorolac 15 MG Q8P PRN 05/11 1030 AC 05/14 Tromethamine IV 0815 Lorazepam 1 MG Q6H PRN 05/10 2000 DC 05/14 PO 0645 Losartan Potassium 50 MG DAILY 05/11 1000 AC 05/14 PO 0808 Meropenem 1 GM Q8H 05/11 1100 AC 05/14 IV 1143 Mirtazapine 30 MG AT BEDTIME 05/10 220 AC 05/13 PO 205 Omeprazole 40 MG DAILY AC 05/11 07 AC 05/14 PO 0645 Phenazopyridine HCl 100 MG TID PRN 05/14 0930 AC PO Polyethylene Glycol 17 GM DAILY 05/11 1000 AC 05/14 PO 0809 Potassium Chloride 40 MEQ ONCE ONE 05/13 1415 DC 05/13 PO 05/13 1416 1611 Senna 187 MG AT BEDTIME PRN 05/10 2000 AC 05/14 PO 0809 Tramadol HCl 50 MG Q6P PRN 05/14 0930 AC PO Trazodone HCl 50 MG QPM 05/10 2200 AC 05/13 PO 205 Venlafaxine HCl 225 MG 0800 05/11 0800 AC 05/14 PO 08 Last 24 Hrs of Lab/[place] Results Last 24 Hrs of Labs/Mics: Laboratory Tests 05/14/17 0703: Anion Gap 7, Estimated GFR > 60, BUN/Creatinine Ratio 33.3 H, CBC w Diff NO MAN DIFF REQ, RBC 3.36 L, MCV 87.4, MCH 27.8, RDW 14.7 H, MPV 9.2, Gran % 81.8 H, Lymphocytes % 9.5 L, Monocytes % 6.5, Eosinophils % 1.7, Basophils % 0.5, Absolute Granulocytes 13.3 H, Absolute Lymphocytes 1.6, Absolute Monocytes 1.1 H, Absolute Eosinophils 0.3, Absolute Basophils 0.1, PUBS MCHC 31.8 L Lines/Diet/Fluids Fluids/Infusions: none Catheters/Tubes: none Lines: peripheral lines Assessment/Plan Assessment: 77-year-old lady with a PMH of diabetes complicated with neuropathy, CAD/CABG status post stenting, chronic anxiety, vascular dementia, peripheral vascular disease, left femoral-popliteal bypass with failed grafting and resultant left above-knee amputation, hypertension, history of GI bleed in 2014 found to have sessile polyp and a mass in the ascending colon that came back positive on biopsy for villous adenoma with superficial invasive adenocarcinoma for which the patient opted NOT to be notified but however did find out a few months ago. Patient decided not to have any surgical intervention and has since been residing at [facility]. Patient presented to [facility] with complaints of one-week duration left lower abdominal pain. CT findings as indicated above. Patient had a syncopal episode on May 12 [place] [employer]. She was given a dose of Narcan and subsequently returned to normal mental status. It is unclear if the Narcan contributed to her return to normal mental status since her only dose of morphine was 4 mg of IV morphine given to her 24 hours prior to the emergency room. She had no slurring of her speech but she did not recall the episode. She admitted to having palpitations but states that that was chronic. Patient was transferred to the telemetry floor for workup of her syncopal attack. Problem list: 0. Syncope 1. UTI 2. Leukocytosis 3. Previously diagnosed GI malignancy: Current CT findings showing Focal narrowing in the ascending colon near hepatic flexure, narrowing in sigmoid colon, lesion in lower lobe of liver 4. Diabetes 5. History of anxiety 7. History of vascular dementia 8. Peripheral neuropathy 9. chronic pain 10. Hypokalemia 0. Syncope: * Patient had negative troponins, EKG was normal. Patient has history of A. fib , however her quick response to Narcan leads us to believe that this was in response to receiving morphine. 1. UTI * Urine cultures are not logged into the system, however patient intake note states that a urine culture taken on May 09 showed gram-negative rods E SBL that was sensitive to gentamicin imipenem meropenem and nitrofurantoin. Previous cultures from January 2017 grew Escherichia coli and Pseudomonas. Urinalysis was also not taken. They are ordered now but since patient is currently on antibiotics they're likely to not correctly reflect her prior infective state. * Continue IV meropenem. As per Bhanu Zhao MD, when patient is able to provide consent, insert PICC line for continued meropenem administration. We are currently on day 4 out of 14. * Start patient on PYRIDIUM 100 mg 3 times a day when necessary for dysuria. 2. Leukocytosis with elevated lactic acid * Possibly secondary to UTI vs the underlying malignancy * Interval improvement in leukocytosis up to 16.3 from 13.0 from 46.5 * Persistent lactic acid elevation from 2-3 may be due to an ongoing ischemic picture which at this time will not be pursued. If evidence of hemodynamic instability family will be notified 3. Previously diagnosed GI malignancy Current CT findings showing Focal narrowing in the ascending colon near hepatic flexure, narrowing in sigmoid colon, lesion in lower lobe of liver * Per family discussion, no plan for any intervention. If evidence of obstruction or complication from underlying malignancy aren't present, notify family immediately 4. Anemia * New onset drop in hemoglobin from 12.2 on May 10 28.7 on May 12 and now on May 13, 8.9. CURRENTLY 9.3. * Unclear if this is secondary to dilutional effect in the setting of fluid resuscitation versus a GI bleed. Will defer any aggressive intervention/workup and monitor for now 5. Diabetes * Home dose of Levemir is 52 units daily * Blood glucose last night was 50. She has had episodes of hypoglycemia and is now to be put on Levemir 13 units twice a day * Continue with low-dose sliding scale 6. History of anxiety * When patient was seen this morning she appeared to be alert and oriented. After administration of Ativan she was unresponsive and drowsy. Discontinue order for lorazepam. We can always reinstate the order if she experiences anxiety again. 7. History of vascular dementia * Continue with Sinemet 25/100 mg half tab 3 times a day 8. Peripheral neuropathy * Continue with gabapentin 300 mg 3 times a day 9. Chronic pain * Continue with Toradol 15 mg every 8 hours when necessary and start tramadol 50 mg every 6 hours when necessary for better pain management. 10. Hypokalemia * Potassium level was 3.3, she was given 1 unit of K Dur to good effect new potassium is 4.6. Monitor. Anticoagulation with ELIQUIS Is on trazodone for sleep related issues Toradol for pain Can send her back to [facility] as she is currently stable. Problem List: 1. Diabetes mellitus type 2 2. Paroxysmal atrial fibrillation 3. UTI 4. Peripheral vascular disease 5. GI malignancy 6. HTN (hypertension) 7. HLD (hyperlipidemia) Pain Ratin Pain Location: Pain is located in her back and abdomen Pain Goal: Pain 4 or less Pain Plan: Patient is on Toradol 15 mg every 8 when necessary, will start tramadol 50 mg every 6 when necessary for better pain control Tomorrow's Labs & Rationales: CBC for white blood cell count, monitor hemoglobin
[2017-05-14 08:32] LABS: ABSOLUTE BASOPHIL COUNT 0.1 /CUMM (0.0-0.2); ABSOLUTE EOSINOPHIL COUNT 0.3 /CUMM (0.0-0.7); ABSOLUTE GRANULOCYTE CT 13.3 /CUMM (1.4-6.5); ABSOLUTE LYMPH COUNT 1.6 /CUMM (1.2-3.4); ABSOLUTE MONOCYTE COUNT 1.1 /CUMM (0.10-0.60); BASOPHIL % 0.5 % (0.0-2.0); EOSINOPHIL % 1.7 % (0-5); GRANULOCYTE % 81.8 % (42.2-75.2); HEMATOCRIT 29.3 % (37-47); MEAN CORPUSCULAR HGB 27.8 PG (27.0-31.0); MEAN CORPUSCULAR HGB CONC 31.8 G/DL (33.0-37.0); MEAN CORPUSCULAR VOLUME 87.4 FL (81.0-99.0); MEAN PLATELET VOLUME 9.2 FL (7.4-10.4); PLATELET COUNT 338 /CUMM (130-400); RBC DISTRIBUTION WIDTH 14.7 % (11.5-14.5); RED BLOOD CELL CT 3.36 /CUMM (4.20-5.40); WHITE BLOOD CELL COUNT 16.3 /CUMM (4.8-10.8)
--- NOTE | 2017-05-14 10:40 | PN- Infect Dx ---
Subjective Subjective: Afebrile. She is minimally arousable and unable to provide any history. She was reportedly very alert earlier today and received Toradol for pain. Objective Last 24 Hrs of Vital Signs/I&O Vital Signs Date Time Temp Pulse Resp B/P B/P Pulse O2 O2 Flow FiO2 Mean Ox Delivery Rate 05/14 707 97.8 80 20 156/86 96 Room Air 05/13 2246 98.3 68 20 172/60 98 Room Air 05/13 2155 99.2 77 20 122/62 95 Room Air 05/13 1633 Room Air 05/13 1517 98.2 81 20 112/60 96 Room Air Intake & Output 05/14 1600 05/14 0800 05/14 0000 Intake Total 50 490 Output Total Balance 50 490 Intake, IV 40 Intake, Oral 50 450 Number 1 Bowel Movements Physical Exam Other Physical Findings: She is lethargic and minimally responsive HEENT pupils normal Lungs bibasilar crackles Heart regular rhythm with 1 to 2/6 systolic ejection murmur Abdomen is obese, tender on palpation on the right, with positive bowel sounds Extremities no edema of the right leg Results Last 24 Hours of Lab Results: Laboratory Tests 05/14 703 Chemistry Sodium (137 - 145 mmol/L) 143 Potassium (3.5 - 5.1 mmol/L) 4.6 Chloride (98 - 107 mmol/L) 105 Carbon Dioxide (22 - 30 mmol/L) 31 H Anion Gap (5 - 16) 7 BUN (7 - 17 mg/dL) 20 H Creatinine (0.5 - 1.0 mg/dL) 0.6 Estimated GFR (>60 ml/min) > 60 BUN/Creatinine Ratio (7 - 25 %) 33.3 H Hematology CBC w Diff NO MAN DIFF REQ WBC (4.8 - 10.8 /CUMM) 16.3 H RBC (4.20 - 5.40 /CUMM) 3.36 L Hgb (12.0 - 16.0 G/DL) 9.3 L Hct (37 - 47 %) 29.3 L MCV (81.0 - 99.0 FL) 87.4 MCH (27.0 - 31.0 PG) 27.8 RDW (11.5 - 14.5 %) 14.7 H Plt Count (130 - 400 /CUMM) 338 MPV (7.4 - 10.4 FL) 9.2 Gran % (42.2 - 75.2 %) 81.8 H Lymphocytes % (20.5 - 51.1 %) 9.5 L Monocytes % (1.7 - 9.3 %) 6.5 Eosinophils % (0 - 5 %) 1.7 Basophils % (0.0 - 2.0 %) 0.5 Absolute Granulocytes (1.4 - 6.5 /CUMM) 13.3 H Absolute Lymphocytes (1.2 - 3.4 /CUMM) 1.6 Absolute Monocytes (0.10 - 0.60 /CUMM) 1.1 H Absolute Eosinophils (0.0 - 0.7 /CUMM) 0.3 Absolute Basophils (0.0 - 0.2 /CUMM) 0.1 PUBS MCHC (33.0 - 37.0 G/DL) 31.8 L Last 24 Hours of Bradley Results: Blood cultures 2 May 10 remain negative Assessment/Plan Impression: Possible pyelonephritis secondary to ESBL producing Escherichia coli with temperatures remaining normal and white blood cell count overall decreased, though elevated from yesterday, on Meropenem now Day 3. Her abdominal tenderness may be related to her untreated underlying adenocarcinoma of the ascending colon, which may warrant further evaluation, though it is not clear that this is responsible for her leukocytosis. Suggestion: 1. Would pursue further evaluation/management of her underlying malignancy if she is agreeable 2. Would proceed with placement of a PICC 3. Continue Meropenem to plan on a 14 day course of treatment
[2017-05-14 14:42] VITALS: BP 146/70
--- NOTE | 2017-05-14 17:04 | ECHOCARDIOGRAM REPORT ---
CLARA LEE Age: 77 : 1940 Gender: F Exam Date: 05/13/2017 18:53 Exam Location: [facility] Ht (in): 65 Wt (lb): 160 BSA: 1.84 BP: 112 / 60 Ordering Physician: AMADOR ANGELA MD Referring Physician: AMADOR ANGELA MD Technologist: Migdalia Bhatt ORALIA Room Number: 172 Indications: PRESYNCOPE/SYNCOPE Rhythm: Sinus Technical Quality: Fair, Technically difficult study FINDINGS Left Ventricle Normal size left ventricle. No obvious regional wall motion abnormalities. Normal left ventricular ejection fraction estimated at 65-70%. Abnormal left ventricular diastolic filling pattern for age. Right Ventricle Right ventricle not well visualized, grossly normal. Right Atrium Normal right atrial size. Left Atrium Mild left atrial dilatation. Mitral Valve Mitral valve thickened. Mild mitral regurgitation. Aortic Valve Trileaflet aortic valve. Diffuse thickening (sclerosis) of the aortic valve cusps without reduced excursion. No aortic stenosis. [id number] aortic regurgitation. Tricuspid Valve Tricuspid valve not well visualized, grossly normal. Mild tricuspid regurgitation. Right ventricular systolic pressure estimated at 26 mmHg. Pulmonic Valve Pulmonic valve not well visualized, grossly normal. Pericardium No pericardial effusion. Great Vessels Aortic root and proximal ascending aorta not well visualized, grossly normal. CONCLUSIONS 1. THis was a technically difficult examination due to the patient's body habitus 2. Moderate aortic sclerosis is present with mild to moderate aortic insufficiency. 3. Mitral leaflet thickening is present with mild mitral insufficiency and mild left atrial enlargement. 4. There is no pericardial fluid present on this examination. 5. The left ventricular chamber size and systolic function are normal with mild concentric hypertrophy present. 6. MIld tricuspid insufficiency is present with no evidence of pulmonary hypertension. Mj Mayorga M.D. (Electronically Signed) Final Date: 14 May 2017 17:04 MEASUREMENTS (Male / Female) Normal Values 2D ECHO LV Diastolic Diameter PLAX 3.4 cm 4.2 - 5.9 / 3.9 - 5.3 cm LV Systolic Diameter PLAX 2.0 cm 2.1 - 4.0 cm LV Fractional Shortening PLAX 41.2 % 25 - 46 % LV Ejection Fraction 2D Teich 73.2 % IVS Diastolic Thickness 1.0 cm LVPW Diastolic Thickness 1.0 cm LV Relative Wall Thickness 0.6 RV Internal Dim ED PLAX 2.5 cm 1.9 - 3.8 cm LVOT Diameter 1.9 cm Aortic Root Diameter 2.5 cm LA Systolic Diameter LX 4.2 cm 3.0 - 4.0 / 2.7 - 3.8 cm LA Volume 37.0 cm 18 - 58 / 22 - 52 cm Ascending Aorta Diameter 3.2 cm DOPPLER AV Peak Velocity 142.0 cm/s AV Peak Gradient 8.1 mmHg AV Mean Velocity 100.0 cm/s AV Mean Gradient 4.0 mmHg AV Velocity Time Integral 31.3 cm AI Deceleration Weakley 245.0 cm/s AI Peak Velocity 347.0 cm/s AI Pressure Half Time 415.0 ms AI Peak Gradient 48.2 mmHg LVOT Peak Velocity 130.0 cm/s LVOT Peak Gradient 6.8 mmHg LVOT Mean Velocity 82.0 cm/s LVOT Mean Gradient 3.0 mmHg LVOT Velocity Time Integral 27.1 cm LVOT Stroke Volume 76.8 cm AV Area Cont Eq vti 2.5 cm AV Area Cont Eq pk 2.6 cm MV Peak Velocity 175.0 cm/s MV Peak Gradient 12.3 mmHg MV Mean Velocity 93.7 cm/s MV Mean Gradient 4.0 mmHg Mitral E Point Velocity 91.9 cm/s Mitral A Point Velocity 112.0 cm/s Mitral E to A Ratio 0.8 MV PHT Velocity 181.0 cm/s MV Deceleration Weakley 977.0 cm/s MV Pressure Half Time 55.6 ms MV Area PHT 4.0 cm MV Deceleration Time 206.0 ms TR Peak Velocity 214.0 cm/s TR Peak Gradient 18.3 mmHg Right Atrial Pressure 5.0 mmHg Pulmonary Artery Systolic Pressu 23.3 mmHg Right Ventricular Systolic Press 23.3 mmHg PV Peak Velocity 97.9 cm/s PV Peak Gradient 3.8 mmHg PV Mean Velocity 67.0 cm/s PV Mean Gradient 2.0 mmHg PV Velocity Time Integral 19.8 cm LV E' Lateral Velocity 10.2 cm/s Mitral E to LV E' Lateral Ratio 9.0 LV E' Septal Velocity 5.8 cm/s Mitral E to LV E' Septal Ratio 16.0
[2017-05-14 22:02] VITALS: BP 136/68
--- NOTE | 2017-05-15 05:51 | Discharge Summary ---
See Addendum Visit Information Visit Dates Admission Date: 05/10/17 Discharge Date: 05/16/2017 Hospital Course Course Attending Physician: TAVON WEN MD Primary Care Physician: MIKAL AVILEZ MD Consulting Request: Consulting Specialty: Infectious Disease Hospital Course: Mrs Rodriguez is a 77-year-old lady with a PMH of diabetes complicated with neuropathy, CAD/CABG status post stenting, chronic anxiety, vascular dementia, peripheral vascular disease, left femoral-popliteal bypass with failed grafting and resultant left above-knee amputation, hypertension, history of GI bleed in 2014 found to have sessile polyp and a mass in the ascending colon that came back positive on biopsy for villous adenoma with superficial invasive adenocarcinoma for which the patient opted NOT to be notified but however did find out a few months ago. Patient decided not to have any surgical intervention and has since been residing at [facility]. Patient presented to [facility] with complaints of one-week duration left lower abdominal pain. VS on admission: BP 180/72, HR 90, RR 18, SPO2 94% on RA, T 96.8 Pertinent labs on admission: WBC 46.5, H&H 12.2/37.6, platelets 417 sodium 139, potassium 4.5, bicarbonate 25, BUN/CR/0.7, glucose 93 Urine culture (05/09/2017): Gram-negative rods EKG Results Pacemaker spikes or artifacts, HR 89, Inferior infarct old. QTC 482 CT abdomen and pelvis: CT on admission today shows concerning area of focal narrowing in the ascending colon near the hepatic flexure, Redundant areas of narrowing in the sigmoid colon, apparent lesion in the lower right lobe of the liver. We admitted the patient to Gen. medicine/telemetry for management of the following problems: 1. UTI 2. Leukocytosis 3. Previously diagnosed GI malignancy: Current CT findings showing Focal narrowing in the ascending colon near hepatic flexure, narrowing in sigmoid colon, lesion in lower lobe of liver 4. CAD/CABG 5. PVD 6. Diabetes 7. History of anxiety 8. History of vascular dementia 9. Peripheral neuropathy Hospital course: 1. UTI * Urine cultures grew Escherichia coli that came back ESBL with sensitivities to imipenem, meropenem, nitrofurantoin and gentamicin * Phone leukocytosis on admission of 46.5 to trend down over the five-day hospital course to 18.0 * Right PICC line was placed on 05/15/2017. We'll plan to continue her on meropenem 1 g IV Q8 total of 2 weeks complicated UTI 2. Previously diagnosed GI malignancy: Current CT findings showing Focal narrowing in the ascending colon near hepatic flexure, narrowing in sigmoid colon, lesion in lower lobe of liver * Patient complained intermittently of abdominal discomfort, generally localized. We maintained her on a regular bowel regimen with MiraLAX, senna and Colace with target of 1-2 soft bowel movements per day. After discussion with family members and daughter Radha who is POA, at this time there is no indication for pursuing any surgical intervention. If she were to exhibit any worsening in her clinical status, reevaluation of goals moving forward would be had at that time 3. CAD/PAD * Stable at this time. Continued atorvastatin 20 mg daily, Eliquis 5 mg BID 4. History of anxiety * Continued on lorazepam 1 mg PO Q6 PRN 8. History of vascular dementia * Continued on sinemet 25-100mg daily 9. Peripheral neuropathy * Continued on gabapentin 300 mg PO TID. Renal function remained stable with no need for dose adjustment of gabapentin Allergies: Coded Allergies: adhesive tape (Intermediate, RASH 10/15/16) prochlorperazine (From Compazine) (Intermediate, SWELLING 10/15/16) warfarin (Intermediate, AMS 10/15/16) Disposition Summary Disposition Principal Diagnosis: ESBL Escherichia coli UTI Additional Diagnosis: Abdominal pain with history of GI malignancy. CT findings showing focal narrowing in the ascending colon near hepatic flexure, narrowing sigmoid colon, lesion in the lower lobe of liver Coronary artery disease CAD Discharge Disposition: SNF Discharge Instructions General Discharge Information Code Status: Do Not Resucitate/Intubat Patient's Diet: Diabetic diet Patient's Activity: As tolerated Follow-Up Instructions/Appts: Please take all medications as directed. You will be on an antibiotic prior IV for 2 weeks. Once complete please have this IV line discontinued. Medications at Discharge Discharge Medications: Stop taking the following medications: Enoxaparin Sodium (Lovenox) 40 MG/0.4 ML SYRINGE Inject into fatty tissue DAILY Continue taking these medications: Gabapentin (Neurontin) 300 MG CAPSULE 1 Capsule ORAL THREE TIMES DAILY Atorvastatin Calcium (Lipitor) 20 MG TABLET 1 Tablet ORAL Every night Losartan Potassium (Cozaar) 50 MG TABLET 1 Tablet ORAL DAILY Lorazepam (Ativan) 1 MG TABLET 1 Tablet ORAL Q6H as needed for ANXIETY Trazodone HCl (Trazodone HCl) 50 MG TABLET 1 Tablet ORAL Every night Venlafaxine HCl (Venlafaxine HCl ER) 225 MG TAB.ER.24 1 Tablet ORAL DAILY Ferrous Sulfate (Ferrous Sulfate) 325 MG (65 MG IRON) TABLET 1 Tablet ORAL DAILY Lactulose (Lactulose) 10 GRAM/15 ML SOLUTION 15 Milliliters ORAL DAILY Insulin Detemir (Levemir) 100 UNIT/ML VIAL 52 Unit Inject into fatty tissue DAILY Mirtazapine (Remeron) 45 MG TABLET 0.5 Tablet ORAL Every night Multivitamin (Daily Multiple Vitamin) 1 EACH TABLET 1 Tablet ORAL DAILY Polyethylene Glycol 3350 (Gavilax) 17 GRAM POWD.PACK 17 Gram ORAL DAILY Ascorbic Acid (Vitamin C) 500 MG CAPSULE.ER 1 Capsule ORAL DAILY Oxycodone HCl (Oxycodone HCl) 10 MG TABLET 1 Tablet ORAL EVERY 2 HOURS NEEDED as needed for PAIN Insulin Lispro (Humalog) 100 UNIT/ML CARTRIDGE Inject into fatty tissue TID/AC Instructions: FS:151-200= 4 UNITS 201-250= 6 UNITS 251-300= 8 UNITS 301-350= 10 UNITS 351-400= 12 UNITS 401 AND GREATER= 14 UNITS AND CALL Metformin HCl (Metformin HCl) 1,000 MG TABLET 1 Tablet ORAL TWICE DAILY Sennosides (Senna) 8.6 MG TABLET 2 Tablet ORAL TWICE DAILY Ascorbate Calcium (Vitamin C) 500 MG TABLET 1 Tablet ORAL DAILY Pantoprazole Sodium (Pantoprazole Sodium) 40 MG TABLET.DR 1 Tablet ORAL TWICE DAILY Carbidopa/Levodopa (Carbidopa-Levodopa 25-100 Tab) 25 MG-100 MG TABLET 0.5 Tablet ORAL THREE TIMES DAILY Apixaban (Eliquis) 5 MG TABLET 1 Tablet ORAL TWICE DAILY Start taking the following new medications: Meropenem (Meropenem) 1 GRAM VIAL 1 Gram INTRAVEN Q8H Qty = 1 No Refills Instructions: 1 mg IV Q8 To complete 29 more doses Copies To: MIKAL AVILEZ MD; AUGUSTINA PRESCOTT,LOVE Goldberg
[2017-05-15 06:36] VITALS: BP 180/78
[2017-05-15 08:00] LABS: ABSOLUTE BASOPHIL COUNT 0.1 /CUMM (0.0-0.2); ABSOLUTE EOSINOPHIL COUNT 0.4 /CUMM (0.0-0.7); ABSOLUTE GRANULOCYTE CT 14.8 /CUMM (1.4-6.5); ABSOLUTE LYMPH COUNT 1.6 /CUMM (1.2-3.4); ABSOLUTE MONOCYTE COUNT 1.1 /CUMM (0.10-0.60); BASOPHIL % 0.4 % (0.0-2.0); EOSINOPHIL % 2.4 % (0-5); GRANULOCYTE % 81.9 % (42.2-75.2); HEMATOCRIT 27.9 % (37-47); MEAN CORPUSCULAR HGB CONC 32.1 G/DL (33.0-37.0); MEAN CORPUSCULAR VOLUME 87.1 FL (81.0-99.0); MEAN PLATELET VOLUME 9.3 FL (7.4-10.4); PLATELET COUNT 352 /CUMM (130-400); RBC DISTRIBUTION WIDTH 14.8 % (11.5-14.5)
--- NOTE | 2017-05-15 08:24 | PN- Housestaff ---
MARILYN PRESCOTT,CAMERON 05/15/17 0823: Subjective Follow-up For: UTI Subjective: She is feeling fair this morning. Abdominal pain is 9/10, not well controlled. She didn't sleep well either. No chest pain or SOB. Review of Systems Constitutional: Reports: no symptoms. EENTM: Reports: no symptoms. Cardiovascular: Reports: no symptoms. Respiratory: Reports: no symptoms. Gastrointestinal: Reports: see HPI. Genitourinary: Reports: no symptoms. Musculoskeletal: Reports: no symptoms. Skin: Reports: no symptoms. Neurological/Psychological: Reports: no symptoms. Hematologic/Endocrine: Reports: no symptoms. Immunologic/Allergic: Reports: no symptoms. Objective Last 24 Hrs of Vital Signs/I&O Vital Signs Date Time Temp Pulse Resp B/P B/P Pulse O2 O2 Flow FiO2 Mean Ox Delivery Rate 05/15 0636 98.0 77 20 180/78 93 Room Air 05/14 2202 99.7 85 20 136/68 94 Room Air 05/14 1603 Room Air 05/14 1442 98.5 82 20 146/70 96 Room Air Intake & Output 05/15 1600 05/15 0800 05/15 0000 Intake Total 510 500 Output Total Balance 510 500 Intake, IV 30 Intake, Oral 480 500 Number 1 2 Bowel Movements Physical Exam General Appearance: Alert, Oriented X3, Cooperative Cardiovascular: Regular Rate, Normal S1, Normal S2 Lungs: Clear to Auscultation Abdomen: Diffusely tender to palpation Current Medications: Current Medications Sig/Majo Start time Last Medication Dose Route Stop Time Status Admin Apixaban 5 MG BID 05/10 220 AC 05/14 PO 213 Atorvastatin Calcium 20 MG QPM 05/10 2200 AC 05/14 PO 213 Carbidopa/Levodopa 0.5 TAB TID 05/10 2200 AC 05/14 PO 2131 Docusate Sodium 100 MG BID PRN 05/10 2000 AC PO Ferrous Sulfate 325 MG DAILY 05/11 1000 AC 05/14 PO 0808 Gabapentin 300 MG TID 05/10 2200 AC 05/14 PO 213 Insulin Aspart 0 TIDAC 05/11 0800 AC 05/14 SC 1615 Insulin Detemir 13 UNITS BID 05/12 1000 AC 05/14 SC 2223 Ketorolac 15 MG Q8P PRN 05/11 1030 AC 05/14 Tromethamine IV 0815 Lorazepam 1 MG Q6H PRN 05/10 2000 DC 05/14 PO 0645 Losartan Potassium 50 MG DAILY 05/11 1000 AC 05/14 PO 0808 Meropenem 1 GM Q8H 05/11 1100 AC 05/15 IV 0306 Mirtazapine 30 MG AT BEDTIME 05/10 2200 AC 05/14 PO 2223 Omeprazole 40 MG DAILY AC 05/11 0700 AC 05/15 PO 0610 Patient Medication 1 ED .STK-MED ONE 05/14 1407 FL Teaching ED 05/14 1408 Phenazopyridine HCl 100 MG TID PRN 05/14 0930 AC PO Polyethylene Glycol 17 GM DAILY 05/11 1000 AC 05/14 PO 0809 Senna 187 MG AT BEDTIME PRN 05/10 2000 AC 05/14 PO 0809 Tramadol HCl 50 MG Q6P PRN 05/14 0930 AC 05/15 PO 0615 Trazodone HCl 50 MG QPM 05/10 2200 AC 05/14 PO 2223 Venlafaxine HCl 225 MG 0800 05/11 0800 AC 05/14 PO 0807 Last 24 Hrs of Lab/Bradley Results Last 24 Hrs of Labs/Mics: Laboratory Tests 05/15/17 0717: CBC w Diff Pending, WBC Pending, RBC Pending, Hgb Pending, Hct Pending, MCV Pending, MCH Pending, RDW Pending, Plt Count Pending, MPV Pending, PUBS MCHC Pending Assessment/Plan Assessment: 77-year-old lady with a PMH of diabetes complicated with neuropathy, CAD/CABG status post stenting, chronic anxiety, vascular dementia, peripheral vascular disease, left femoral-popliteal bypass with failed grafting and resultant left above-knee amputation, hypertension, history of GI bleed in 2015 found to have sessile polyp and a mass in the ascending colon that came back positive on biopsy for villous adenoma with superficial invasive adenocarcinoma for which the patient opted NOT to be notified but however did find out a few months ago. Patient decided not to have any surgical intervention and has since been residing at [facility]. #UTI: She is currently on meropenem. Despite this her weight has increased from 16.3-18 today. She is being followed by ID. however it is clear that the patient's wishes are not to be overtreated invasively. We are in contact with her daughter who has power of staff attorney. This white count increase may be due to malignancy. -Continue meropenem -Continue phenazopyridine #GI malignancy: Patient has declined treatment for this. Her family would also like opioids limited. -No treatment -Ketorolac for pain #Chronic medical problems: Diabetes, anxiety, dementia, peripheral neuropathy, chronic pain -Continue tramadol, polyethylene glycol, losartan, iron, venlafaxine, omeprazole , trazodone, mirtazapine, gabapentin, carbidopa/levodopa, atorvastatin, senna, docusate DVT prophylaxis with apixiban DO NOT RESUSCITATE/DO NOT INTUBATE Problem List: 1. UTI 2. GI malignancy Pain Ratin Pain Location: Abdomen Pain Goal: Remain pain free Pain Plan: See assessment and plan Tomorrow's Labs & Rationales: CBC BETTYE PRESCOTT,TAVON 05/15/17 1357: Attending MD Review Statement Attending Statement Attending MD Statement: examined this patient, discuss w/resident/PA/BUNDLE PERSON, agreed w/resident/PA/BUNDLE PERSON, reviewed EMR data (avail) Attending Assessment/Plan: 77F PMH HTN, HLD, Afib not on anticoagulation, PAD, CVA, CAD, recently diagnosed colon cancer by colonoscopy with patient declining treatment for it, presenting with several days of LLQ pain, diffuse abdominal discomfort, and weakness. Concern at ECF was for ileus, though patient had a bowel movement this morning. In the ED the patient was found to have a WBC of 46k and UA suggestive of UTI. CT abdomen confirms mass suspicious for colon cancer, unchanged cyst in liver, no evidence of colitis or perforation. Of note, patient's W10 from [place] lists her as comfort measures only, which is NOT true. The patient is DNR/DNI. She does not wish to have surgery or chemotherapy for her colon cancer. But she does in fact want treatment for any other clinical condition, disease, infection, or otherwise. No invasive procedures. Patient has been treated for sepsis secondary to ESBL E.coli UTI with Meropenem with excellent improvement in clinical status. Afebrile, no complaints, labs normalized. 1. Sepsis secondary to ESBL E.coli UTI 2. LLQ pain 3. Neutrophilia 4. Colon cancer, unknown stage Plan - Continue on general medicine - Continue Meropenem - Pain control - continue home medications - PICC line today - DVT PPx - Anticipated discharge tomorrow. Will complete 14 days of Meropenem. Please send CMR to pharmacy for review. * Continue with gabapentin 300 mg 3 times a day 9. Chronic pain * Continue with Toradol 15 mg every 8 hours when necessary and start tramadol 50 mg every 6 hours when necessary for better pain management. 10. Hypokalemia * Potassium level was 3.3, she was given 1 unit of K Dur to good effect new potassium is 4.6. Monitor. Anticoagulation with ELIQUSHANTE Is on trazodone for sleep related issues Toradol for pain Can send her back to [facility] as she is currently stable. BETTYE PRESCOTT,TAVON 05/15/17 0847: Attending MD Review Statement Attending Statement Attending MD Statement: examined this patient, discuss w/resident/PA/BUNDLE PERSON, agreed w/resident/PA/BUNDLE PERSON, reviewed EMR data (avail) Attending Assessment/Plan: 77F PMH HTN, HLD, Afib not on anticoagulation, PAD, CVA, CAD, recently diagnosed colon cancer by colonoscopy with patient declining treatment for it, presenting with several days of LLQ pain, diffuse abdominal discomfort, and weakness. Concern at ECF was for ileus, though patient had a bowel movement this morning. In the ED the patient was found to have a WBC of 46k and UA suggestive of UTI. CT abdomen confirms mass suspicious for colon cancer, unchanged cyst in liver, no evidence of colitis or perforation. Of note, patient's W10 from [place] lists her as comfort measures only, which is NOT true. The patient is DNR/DNI. She does not wish to have surgery or chemotherapy for her colon cancer. But she does in fact want treatment for any other clinical condition, disease, infection, or otherwise. No invasive procedures. Patient has been treated for sepsis secondary to ESBL E.coli UTI with Meropenem with excellent improvement in clinical status. Afebrile, no complaints, labs normalized. 1. Sepsis secondary to ESBL E.coli UTI 2. LLQ pain 3. Neutrophilia 4. Colon cancer, unknown stage Plan - Continue on general medicine - Continue Meropenem - Pain control - continue home medications - PICC line today - DVT PPx - Anticipated discharge tomorrow. Will complete 14 days of Meropenem. Please send CMR to pharmacy for review.
--- NOTE | 2017-05-15 11:38 | RADIOLOGY REPORT ---
EXAMINATION: XR PORTABLE CHEST CLINICAL INFORMATION: PICC line placement assess location COMPARISON: Prior chest October 2016 TECHNIQUE: Portable frontal view of the chest was obtained. FINDINGS: A PICC line is noted with the tip in the region of the SVC right atrial junction. Lungs clear. Calcification of the dorsal aorta. Pulmonary vascularity and cardiac silhouette is normal. Postsurgical changes overlying the lower cervical spine with plate and screw fixation IMPRESSION: PICC line in region of SVC right atrial junction
[2017-05-15] MEDS ORDERED: MEROPENEM1 G1 IV (13:52)
--- NOTE | 2017-05-15 13:57 | PN- Infect Dx ---
Subjective Subjective: Afebrile without specific complaints Objective Last 24 Hrs of Vital Signs/I&O Vital Signs Date Time Temp Pulse Resp B/P B/P Pulse O2 O2 Flow FiO2 Mean Ox Delivery Rate 05/15 1141 142/68 05/15 0636 98.0 77 20 180/78 93 Room Air 05/14 2202 99.7 85 20 136/68 94 Room Air 05/14 1603 Room Air 05/14 1442 98.5 82 20 146/70 96 Room Air Intake & Output 05/15 1600 05/15 0800 05/15 0000 Intake Total 510 500 Output Total Balance 510 500 Intake, IV 30 Intake, Oral 480 500 Number 1 2 Bowel Movements Physical Exam Other Physical Findings: She appears comfortable in no acute distress Skin maculopapular nonpruritic rash over her anterior chest and upper back Lungs bibasilar crackles Heart regular rhythm with no murmur Abdomen is distended, tender to palpation diffusely, right greater than left, with no guarding or rebound, positive bowel sounds Back left CVA tenderness Extremities PICC in place in the left upper extremity Results Last 24 Hours of Lab Results: Laboratory Tests 05/15 0717 Hematology CBC w Diff NO MAN DIFF REQ WBC (4.8 - 10.8 /CUMM) 18.0 H RBC (4.20 - 5.40 /CUMM) 3.20 L Hgb (12.0 - 16.0 G/DL) 8.9 L Hct (37 - 47 %) 27.9 L MCV (81.0 - 99.0 FL) 87.1 MCH (27.0 - 31.0 PG) 28.0 RDW (11.5 - 14.5 %) 14.8 H Plt Count (130 - 400 /CUMM) 352 MPV (7.4 - 10.4 FL) 9.3 Gran % (42.2 - 75.2 %) 81.9 H Lymphocytes % (20.5 - 51.1 %) 9.0 L Monocytes % (1.7 - 9.3 %) 6.3 Eosinophils % (0 - 5 %) 2.4 Basophils % (0.0 - 2.0 %) 0.4 Absolute Granulocytes (1.4 - 6.5 /CUMM) 14.8 H Absolute Lymphocytes (1.2 - 3.4 /CUMM) 1.6 Absolute Monocytes (0.10 - 0.60 /CUMM) 1.1 H Absolute Eosinophils (0.0 - 0.7 /CUMM) 0.4 Absolute Basophils (0.0 - 0.2 /CUMM) 0.1 PUBS MCHC (33.0 - 37.0 G/DL) 32.1 L Last 24 Hours of Bradley Results: No recent cultures Recent Imaging Studies: Chest x-ray May 15 clear lungs Assessment/Plan Impression: Increasing white blood cell count of unclear etiology with temperatures remaining normal on Meropenem Day 4 of treatment for presumed sepsis of urologic origin secondary to ESBL producing Escherichia coli. She continues to have abdominal tenderness, which may be related to her untreated underlying adenocarcinoma of the ascending colon, and further evaluation of this may be warranted, particularly with her increasing white blood cell count. She has no other obvious source of infection at this time. The rash on her upper chest and upper back is of unclear etiology but was present on admission and, according to patient, for several months prior to admission. Suggestion: 1. Repeat blood cultures 2 2. Repeat urine culture 3. Repeat liver enzymes 4. Repeat CT of the abdomen and pelvis with IV contrast 5. Continue Meropenem
--- NOTE | 2017-05-15 14:03 | Patient Discharge Instructions ---
Discharge Instructions General Discharge Information You were seen/treated for: Complicated urinary tract infection You had these procedures: Peripherally inserted catheter placed in the arm Watch for these problems: Fevers, chills, nausea, vomiting, worsening abdominal pain, bloody diarrhea Special Instructions: Please take all medications as directed. Please have the PICC line removed once the antibiotic course is completed. Please follow-up with her PCP within one week after discharge. Diet Continue normal diet: Yes Activity Activity Self Limited: Yes Acute Coronary Syndrome Inclusion Criteria At DC or during hospital stay patient has or had the following: ACS DIAGNOSIS No Discharge Core Measures Meds if any: Prescribed or Continued at Discharge Meds if any: NOT Prescribed or Continued at Discharge Congestive Heart Failure Inclusion Criteria At DC or during hospital stay patient has or had the following: CHF DIAGNOSIS No Discharge Core Measures Meds if any: Prescribed or Continued at Discharge Meds if any: NOT Prescribed or Continued at Discharge Cerebrovascular accident Inclusion Criteria At DC or during hospital stay patient has or had the following: CVA/TIA Diagnosis No Discharge Core Measures Meds if any: Prescribed or Continued at Discharge Meds if any: NOT Prescribed or Continued at Discharge Venous thromboembolism Inclusion Criteria VTE Diagnosis No VTE Type NONE VTE Confirmed by (Test) NONE Discharge Core Measures - Per Current guidelines, there needs to be overlap - treatment for the first 5 days of Warfarin therapy. - If discharged on Warfarin prior to 5 days of - overlap therapy, the patient will need to be - assessed for post discharge needs including - *Post discharge parental anticoagulation - *Warfarin and/or parental anticoagulation education - *Follow up date to check INR post discharge At least 5 days overlap therapy as Inpatient No Meds if any: Prescribed or Continued at Discharge Note: Overlap Therapy is Warfarin and Anticoagulant Meds if any: NOT Prescribed or Continued at Discharge
[2017-05-15 14:48] VITALS: BP 138/80
[2017-05-15 22:18] VITALS: BP 190/70
[2017-05-16 06:40] VITALS: BP 120/60
--- NOTE | 2017-05-16 06:59 | PN- Housestaff ---
See Addendum Subjective Follow-up For: UTI Subjective: No overnight events. She is complaining of some abdominal pain this morning. However appetite is still that she has breakfast. She is still having burning while being and increased frequency. Otherwise she she does not want to go back to the rehabilitation place today. She would like to stay here longer. Review of Systems Constitutional: Reports: no symptoms. EENTM: Reports: no symptoms. Cardiovascular: Reports: no symptoms. Respiratory: Reports: no symptoms. Gastrointestinal: Reports: see HPI. Genitourinary: Reports: see HPI. Musculoskeletal: Reports: no symptoms. Skin: Reports: no symptoms. Neurological/Psychological: Reports: no symptoms. Hematologic/Endocrine: Reports: no symptoms. Immunologic/Allergic: Reports: no symptoms. Objective Last 24 Hrs of Vital Signs/I&O Vital Signs Date Time Temp Pulse Resp B/P B/P Pulse O2 O2 Flow FiO2 Mean Ox Delivery Rate 05/16 0640 98.2 70 20 120/60 95 Room Air 05/15 2218 98.4 81 20 190/70 96 Room Air 05/15 1448 98.7 79 20 138/80 96 Room Air 05/15 1141 142/68 Intake & Output 05/16 1600 05/16 0800 05/16 0000 Intake Total Output Total Balance Number 1 Bowel Movements Physical Exam General Appearance: Alert, Oriented X3, Cooperative, No Acute Distress Cardiovascular: Regular Rate, Normal S1, Normal S2 Lungs: Clear to Auscultation Abdomen: tender to palpation diffusely Current Medications: Current Medications Sig/Majo Start time Last Medication Dose Route Stop Time Status Admin Apixaban 5 MG BID 05/10 2200 AC 05/15 PO 2220 Atorvastatin Calcium 20 MG QPM 05/10 2200 AC 05/15 PO 2220 Carbidopa/Levodopa 0.5 TAB TID 05/10 220 AC 05/15 PO 2223 Docusate Sodium 100 MG BID PRN 05/10 2000 AC PO Ferrous Sulfate 325 MG DAILY 05/11 1000 AC 05/15 PO 1135 Gabapentin 300 MG TID 05/10 2200 AC 05/15 PO 2222 Insulin Aspart 0 TIDAC 05/11 0800 AC 05/15 SC 1830 Insulin Detemir 13 UNITS BID 05/12 1000 AC 05/15 SC 2233 Ketorolac 15 MG .STK-MED ONE 05/15 1415 DC Tromethamine IM 05/15 1416 Ketorolac 15 MG Q8P PRN 05/11 1030 AC 05/15 Tromethamine IV 1420 Losartan Potassium 50 MG DAILY 05/11 1000 AC 05/15 PO 1141 Meropenem 1 GM Q8H 05/11 1100 AC 05/16 IV 0353 Mirtazapine 30 MG AT BEDTIME 05/10 2200 AC 05/15 PO 2222 Omeprazole 40 MG DAILY AC 05/11 0700 AC 05/16 PO 0602 Phenazopyridine HCl 100 MG TID PRN 05/14 0930 AC PO Polyethylene Glycol 17 GM DAILY 05/11 1000 AC 05/15 PO 1134 Senna 187 MG AT BEDTIME PRN 05/10 2000 AC 05/14 PO 0809 Tramadol HCl 50 MG Q6P PRN 05/14 0930 AC 05/15 PO 2012 Trazodone HCl 50 MG QPM 05/10 2200 AC 05/15 PO 2220 Venlafaxine HCl 225 MG 0800 05/11 0800 AC 05/15 PO 1141 Assessment/Plan Assessment: 77-year-old lady with a PMH of diabetes complicated with neuropathy, CAD/CABG status post stenting, chronic anxiety, vascular dementia, peripheral vascular disease, left femoral-popliteal bypass with failed grafting and resultant left above-knee amputation, hypertension, history of GI bleed in 2014 found to have sessile polyp and a mass in the ascending colon that came back positive on biopsy for villous adenoma with superficial invasive adenocarcinoma for which the patient opted NOT to be notified but however did find out a few months ago. Patient decided not to have any surgical intervention and has since been residing at [facility]. #UTI: She is currently on meropenem. Despite this her weight has increased from 16.3-18 today. She is being followed by ID. however it is clear that the patient's wishes are not to be overtreated invasively. We are in contact with her daughter who has power of patent prosecution attorney. This white count increase may be due to malignancy. The question is whether the family wants us to investigate this. We will talk to them today. -Continue meropenem -Continue phenazopyridine -Abdominal x-ray #GI malignancy: Patient has declined treatment for this. Her family would also like opioids limited. -No treatment -Ketorolac for pain #Chronic medical problems: Diabetes, anxiety, dementia, peripheral neuropathy, chronic pain -Continue tramadol, polyethylene glycol, losartan, iron, venlafaxine, omeprazole , trazodone, mirtazapine, gabapentin, carbidopa/levodopa, atorvastatin, senna, docusate DVT prophylaxis with apixiban DO NOT RESUSCITATE/DO NOT INTUBATE Problem List: 1. UTI 2. GI malignancy Pain Ratin Pain Location: Abdomen Pain Goal: Pain 7 or less Pain Plan: See assessment and plan Tomorrow's Labs & Rationales: None. Consulting Request: Consulting Specialty: Infectious Disease
--- NOTE | 2017-05-16 11:32 | PN- Infect Dx ---
Subjective Subjective: Afebrile. She continues to complain of abdominal pain. Objective Last 24 Hrs of Vital Signs/I&O Vital Signs Date Time Temp Pulse Resp B/P B/P Pulse O2 O2 Flow FiO2 Mean Ox Delivery Rate 05/16 0906 75 140/64 05/16 0640 98.2 70 20 120/60 95 Room Air 05/15 2218 98.4 81 20 190/70 96 Room Air 05/15 1448 98.7 79 20 138/80 96 Room Air 05/15 1141 142/68 Intake & Output 05/16 1600 05/16 0800 05/16 0000 Intake Total 20 Output Total Balance 20 Intake, IV 20 Number 1 Bowel Movements Physical Exam Other Physical Findings: She appears comfortable in no acute distress Skin maculopapular rash on her upper chest and upper back unchanged Lungs are clear Heart regular rhythm with no murmur Abdomen is soft, tender on palpation diffusely, right greater than left, with no guarding or rebound, positive bowel sounds Back no CVA tenderness Results Last 24 Hours of Lab Results: No labs from today Last 24 Hours of Bradley Results: No recent cultures Assessment/Plan Impression: Clinically stable with temperatures remaining normal but with her white blood cell count increasing on Meropenem now Day 5 of treatment for presumed sepsis of urologic origin secondary to ESBL producing Escherichia coli. She continues to have abdominal tenderness, which may be related to her untreated adenocarcinoma of the ascending colon and further evaluation of this may be warranted, particularly with her increasing white blood cell count. Apparently there has been discussion regarding the level or degree of further evaluation desired by the patient as, at one point, she was made comfort measures and this may affect further workup. The rash on her upper chest and upper back is of unclear etiology but was present on admission and, according to patient, for several months prior to admission. Suggestion: 1. Await decision regarding overall level of care in this patient 2. If plan to continue aggressive management would repeat blood cultures 2, urine culture and CT of the abdomen and pelvis with IV contrast. 3. Repeat liver enzymes 4. Continue Meropenem
--- NOTE | 2017-05-16 13:21 | RADIOLOGY REPORT ---
EXAMINATION: XR ABDOMEN CLINICAL INDICATION: Assess for free air intra-abdominally. COMPARISON: CT scan of the abdomen and pelvis 05/10/2017. TECHNIQUE: AP view of the abdomen. FINDINGS: The bowel gas pattern is normal with no evidence of ileus or obstruction. There is stool and air noted within the distal large bowel and rectum. The study redemonstrates elevation of the right hemidiaphragm. No free intra-abdominal air is demonstrated. The visualized lung bianchi appear clear. There is a PICC line from the right. The tip at the cavoatrial junction. There are surgical clips in the upper abdomen and projected over the T10 vertebra. There are surgical sutures projected over the right upper abdomen. There are sequelae of surgery at the bilateral hips with hardware at the left hip. IMPRESSION: 1. There is no evidence of ileus or obstruction. 2. There is no free air noted within the abdomen.
[2017-05-16 14:53] VITALS: BP 114/62
[2017-05-16 22:25] VITALS: BP 118/70
[2017-05-17 06:18] VITALS: BP 150/60
--- NOTE | 2017-05-17 08:13 | PN- Housestaff ---
See Addendum Subjective Follow-up For: UTI Subjective: No over night events. She is in a lot of pain this morning, 9.5/10 in her abdomen. Her daughter will be coming in from [place] around noon today. We will discuss her options going forward and develop a plan to keep her comfortable. Review of Systems Constitutional: Reports: no symptoms. EENTM: Reports: no symptoms. Cardiovascular: Reports: no symptoms. Respiratory: Reports: no symptoms. Gastrointestinal: Reports: see HPI. Genitourinary: Reports: no symptoms. Musculoskeletal: Reports: no symptoms. Skin: Reports: no symptoms. Neurological/Psychological: Reports: no symptoms. Hematologic/Endocrine: Reports: no symptoms. Immunologic/Allergic: Reports: no symptoms. Objective Last 24 Hrs of Vital Signs/I&O Vital Signs Date Time Temp Pulse Resp B/P B/P Pulse O2 O2 Flow FiO2 Mean Ox Delivery Rate 05/17 618 98.7 70 20 150/60 99 05/16 2225 98.3 78 20 118/70 94 Room Air 05/16 1604 Room Air 05/16 1453 98.3 73 20 114/62 93 Room Air 05/16 0906 75 140/64 Intake & Output 05/17 1600 05/17 0800 05/17 0000 Intake Total 240 340 Output Total Balance 240 340 Intake, Oral 240 340 Physical Exam General Appearance: Alert, Oriented X3, Cooperative, No Acute Distress Cardiovascular: Regular Rate, Normal S1, Normal S2 Lungs: Clear to Auscultation Abdomen: diffusely tender to palpation Current Medications: Current Medications Sig/Majo Start time Last Medication Dose Route Stop Time Status Admin Apixaban 5 MG BID 05/10 2200 AC 05/16 PO 221 Atorvastatin Calcium 20 MG QPM 05/10 220 AC 05/16 PO 221 Carbidopa/Levodopa 0.5 TAB TID 05/10 220 AC 05/16 PO 2225 Docusate Sodium 100 MG BID PRN 05/10 2000 AC PO Ferrous Sulfate 325 MG DAILY 05/11 1000 AC 05/16 PO 09 Gabapentin 300 MG TID 05/10 2200 AC 05/16 PO 221 Insulin Aspart 0 TIDAC 05/11 0800 AC 05/16 SC 1646 Insulin Detemir 13 UNITS BID 05/12 1000 AC 05/16 SC 222 Ketorolac 30 MG .STK-MED ONE 05/16 1953 DC Tromethamine IM 05/16 195 Ketorolac 15 MG ONCE ONE 05/16 1545 DC 05/16 Tromethamine IV 05/16 1546 1551 Ketorolac 30 MG .STK-MED ONE 05/16 1544 DC Tromethamine IM 05/16 1545 Ketorolac 15 MG Q8P PRN 05/11 1030 AC 05/17 Tromethamine IV 0302 Losartan Potassium 50 MG DAILY 05/11 1000 AC 05/16 PO 0906 Meropenem 1 GM Q8H 05/11 1100 AC 05/17 IV 0302 Mirtazapine 30 MG AT BEDTIME 05/10 2200 AC 05/16 PO 2214 Morphine Sulfate 2 MG Q12P PRN 05/16 1830 AC 05/17 IV 0617 Omeprazole 40 MG DAILY AC 05/11 0700 AC 05/17 PO 0616 Phenazopyridine HCl 100 MG TID PRN 05/14 0930 AC PO Polyethylene Glycol 17 GM DAILY 05/11 1000 AC 05/16 PO 0909 Senna 187 MG AT BEDTIME PRN 05/10 2000 AC 05/14 PO 0809 Tramadol HCl 50 MG Q6P PRN 05/14 0930 AC 05/16 PO 2055 Trazodone HCl 50 MG QPM 05/10 2200 AC 05/16 PO 2211 Venlafaxine HCl 225 MG 0800 05/11 0800 AC 05/16 PO 0903 Assessment/Plan Assessment: 77-year-old lady with a PMH of diabetes complicated with neuropathy, CAD/CABG status post stenting, chronic anxiety, vascular dementia, peripheral vascular disease, left femoral-popliteal bypass with failed grafting and resultant left above-knee amputation, hypertension, history of GI bleed in 2014 found to have sessile polyp and a mass in the ascending colon that came back positive on biopsy for villous adenoma with superficial invasive adenocarcinoma for which the patient opted NOT to be notified but however did find out a few months ago. Patient decided not to have any surgical intervention and has since been residing at [facility]. 05/16: abdominal x-ray: No evidence of ileus or obstruction or free air. #UTI: She is currently on meropenem. Despite this her weight has increased from 16.3-18. We have not worked this up or been taking labs because it seems that the family does not want treatment for this. We are going to have a conversation with her daughter Radha and the patient this afternoon. Palliative care will also be consulted. For now we will continue the antibiotics. -Continue meropenem - PICC line placed -Continue phenazopyridine #GI malignancy: Patient has declined treatment for this. Her family would also like opioids limited. -No treatment -Ketorolac for pain -2 mg morphine every 12 when necessary pain #Chronic medical problems: Diabetes, anxiety, dementia, peripheral neuropathy, chronic pain -Continue tramadol, polyethylene glycol, losartan, iron, venlafaxine, omeprazole , trazodone, mirtazapine, gabapentin, carbidopa/levodopa, atorvastatin, senna, docusate DVT prophylaxis with apixiban DO NOT RESUSCITATE/DO NOT INTUBATE Problem List: 1. UTI 2. GI malignancy Pain Ratin Pain Location: Abdomen Pain Goal: Remain pain free Pain Plan: See assessment and plan Tomorrow's Labs & Rationales: None Consulting Request: Consulting Specialty: Infectious Disease
--- NOTE | 2017-05-17 14:34 | PN- Infect Dx ---
Subjective Subjective: Afebrile without complaints Objective Last 24 Hrs of Vital Signs/I&O Vital Signs Date Time Temp Pulse Resp B/P B/P Pulse O2 O2 Flow FiO2 Mean Ox Delivery Rate 05/17 0952 73 144/55 05/17 0618 98.7 70 20 150/60 99 05/16 2225 98.3 78 20 118/70 94 Room Air 05/16 1604 Room Air 05/16 1453 98.3 73 20 114/62 93 Room Air Intake & Output 05/17 1600 05/17 0800 05/17 0000 Intake Total 240 340 Output Total Balance 240 340 Intake, Oral 240 340 Physical Exam Other Physical Findings: She appears comfortable in no acute distress Abdomen is soft, tender on palpation diffusely, with no guarding or rebound, positive bowel sounds Back mild left CVA tenderness Extremities no cyanosis, clubbing or edema Results Last 24 Hours of Lab Results: No labs from today Last 24 Hours of Bradley Results: No recent cultures Recent Imaging Studies: Abdominal x-ray May 16 negative Assessment/Plan Impression: Clinically stable with temperatures remaining normal but with her most recent white blood cell count increased after initially decreasing on Meropenem now Day 6 of treatment for presumed sepsis of urologic origin secondary to ESBL producing Escherichia coli. She continues to have abdominal tenderness, which may be related to her untreated adenocarcinoma of the ascending colon and further evaluation of this may be warranted, particularly with her increasing white blood cell count. Have had a discussion with the patient and her daughter regarding further workup, such as a follow-up white blood cell count and CT scan of the abdomen and pelvis, which they are agreeable to, though the patient does not want to consider any surgery. Suggestion: 1. Repeat CBC and liver enzymes 2. Repeat urine culture 3. Repeat blood cultures [address] of the abdomen and pelvis with IV contrast if her white blood cell count remains elevated 4. Continue Meropenem pending above
[2017-05-17 15:09] VITALS: BP 130/50
[2017-05-17 16:31] LABS: ABSOLUTE BASOPHIL COUNT 0.1 /CUMM (0.0-0.2); ABSOLUTE EOSINOPHIL COUNT 0 /CUMM (0.0-0.7); ABSOLUTE GRANULOCYTE CT 18.7 /CUMM (1.4-6.5); ABSOLUTE LYMPH COUNT 1.6 /CUMM (1.2-3.4); ABSOLUTE MONOCYTE COUNT 0.7 /CUMM (0.10-0.60); BASOPHIL % 0.3 % (0.0-2.0); EOSINOPHIL % 0 % (0-5); HEMATOCRIT 28.9 % (37-47); MEAN CORPUSCULAR HGB 27.8 PG (27.0-31.0); MEAN CORPUSCULAR HGB CONC 31.8 G/DL (33.0-37.0); MEAN CORPUSCULAR VOLUME 87.6 FL (81.0-99.0); MEAN PLATELET VOLUME 9.5 FL (7.4-10.4); PLATELET COUNT 380 /CUMM (130-400); RBC DISTRIBUTION WIDTH 15.2 % (11.5-14.5)
[2017-05-17 23:10] VITALS: BP 128/48
[2017-05-18 06:58] VITALS: BP 152/54
--- NOTE | 2017-05-18 09:23 | PN- Housestaff ---
See Addendum Subjective Follow-up For: UTI Subjective: This morning she is feeling well. She still has some pain in her abdomen, she feels is well controlled. The new plan seems to be for her to go to rehabilitation either today or tomorrow. However talking to her this morning, she would rather stay here. We'll follow-up with her and her daughter Radha. Review of Systems Constitutional: Reports: no symptoms. EENTM: Reports: no symptoms. Cardiovascular: Reports: no symptoms. Respiratory: Reports: no symptoms. Gastrointestinal: Reports: see HPI. Genitourinary: Reports: no symptoms. Musculoskeletal: Reports: no symptoms. Skin: Reports: no symptoms. Neurological/Psychological: Reports: no symptoms. Hematologic/Endocrine: Reports: no symptoms. Immunologic/Allergic: Reports: no symptoms. Objective Last 24 Hrs of Vital Signs/I&O Vital Signs Date Time Temp Pulse Resp B/P B/P Pulse O2 O2 Flow FiO2 Mean Ox Delivery Rate 05/18 0845 152/54 05/18 0658 98.9 77 20 152/54 97 Room Air 05/18 0000 Room Air 05/17 2310 98.4 72 18 128/48 93 Room Air 05/17 1606 Room Air 05/17 1509 98.4 68 20 130/50 92 Room Air 05/17 0952 73 144/55 Intake & Output 05/18 1600 05/18 0800 05/18 0000 Intake Total 240 960 Output Total 400 125 Balance -160 835 Intake, Oral 240 960 Output, Urine 400 125 Physical Exam General Appearance: Alert, Oriented X3, Cooperative, No Acute Distress Cardiovascular: Regular Rate, Normal S1, Normal S2 Lungs: Clear to Auscultation Abdomen: diffusely tender to palpation Current Medications: Current Medications Sig/Majo Start time Last Medication Dose Route Stop Time Status Admin Apixaban 5 MG BID 05/10 2200 AC 05/18 PO 0840 Atorvastatin Calcium 20 MG QPM 05/10 2200 AC 05/17 PO 210 Carbidopa/Levodopa 0.5 TAB TID 05/10 2200 AC 05/18 PO 0841 Docusate Sodium 100 MG BID PRN 05/10 2000 AC PO Ferrous Sulfate 325 MG DAILY 05/11 1000 AC 05/18 PO 0839 Gabapentin 300 MG TID 05/10 2200 AC 05/18 PO 0839 Insulin Aspart 0 TIDAC 05/11 0800 AC 05/18 SC 0842 Insulin Detemir 13 UNITS BID 05/12 1000 AC 05/18 SC 0843 Ketorolac 30 MG .STK-MED ONE 05/17 2055 DC Tromethamine IM 05/17 2056 Ketorolac 30 MG .STK-MED ONE 05/17 1126 DC Tromethamine IM 05/17 112 Ketorolac 15 MG Q8P PRN 05/11 1030 AC 05/17 Tromethamine IV 210 Losartan Potassium 50 MG DAILY 05/11 1000 AC 05/18 PO 0845 Meropenem 1 GM Q8H / 1100 AC 05/17 IV 1945 Mirtazapine 30 MG AT BEDTIME 05/10 2200 AC 05/17 PO 2102 Morphine Sulfate 2 MG Q12P PRN 05/16 1830 AC 05/18 IV 0844 Omeprazole 40 MG DAILY AC 05/11 0700 AC 05/18 PO 0630 Patient Medication 1 ED .STK-MED ONE 05/17 1436 DC Teaching ED 05/17 1437 Phenazopyridine HCl 100 MG TID PRN 05/14 0930 AC PO Polyethylene Glycol 17 GM DAILY 05/11 1000 AC 05/18 PO 0841 Senna 187 MG AT BEDTIME PRN 05/10 2000 AC 05/14 PO 0809 Tramadol HCl 50 MG Q6P PRN 05/14 0930 AC 05/18 PO 0630 Trazodone HCl 50 MG QPM 05/10 2200 AC 05/17 PO 2102 Venlafaxine HCl 225 MG 0800 /08 0800 AC 05/18 PO 0837 Vitamin A/Vitamin D 1 JOAN BID 05/17 2200 AC 05/18 TOP 0846 Last 24 Hrs of Lab/Bradley Results Last 24 Hrs of Labs/Mics: Laboratory Tests 05/17/17 2009: Urine Color YEL, Urine Clarity HAZY H, Urine pH 6.0, Ur Specific [place] >= 1.030, Urine Protein 30 H, Urine Ketones NEG, Urine Nitrite NEG, Urine Bilirubin NEG, Urine Urobilinogen 0.2, Ur Leukocyte Esterase SMALL H, Ur Microscopic SEDIMENT EXAMINED, Urine RBC 25-50 H, Urine WBC > 75 H, Ur Epithelial Cells MANY H, Urine Hemoglobin SMALL H, Urine Glucose NEG 05/17/17 1600: Anion Gap 11, Estimated GFR > 60, BUN/Creatinine Ratio 51.7 H, Total Bilirubin 0.3, Direct Bilirubin 0.3, AST 55 H, ALT 43, Alkaline Phosphatase 199 H, Total Protein 6.1 L, Albumin 3.2 L, CBC w Diff NO MAN DIFF REQ, RBC 3.30 L, MCV 87.6, MCH 27.8, RDW 15.2 H, MPV 9.5, Gran % 89.0 H, Lymphocytes % 7.5 L, Monocytes % 3.2, Eosinophils % 0, Basophils % 0.3, Absolute Granulocytes 18.7 H , Absolute Lymphocytes 1.6, Absolute Monocytes 0.7 H, Absolute Eosinophils 0, Absolute Basophils 0.1, PUBS MCHC 31.8 L Microbiology 05/17 2009 URINE ROUT: Urine Culture - RES 05/17 1600 BLOOD: Blood Culture - RECD 05/17 1438 BLOOD: Blood Culture - CAN Cancelled: SPECIMEN NOT RECEIVED IN LABORATORY Assessment/Plan Assessment: 77-year-old lady with a PMH of diabetes complicated with neuropathy, CAD/CABG status post stenting, chronic anxiety, vascular dementia, peripheral vascular disease, left femoral-popliteal bypass with failed grafting and resultant left above-knee amputation, hypertension, history of GI bleed in 2014 found to have sessile polyp and a mass in the ascending colon that came back positive on biopsy for villous adenoma with superficial invasive adenocarcinoma for which the patient opted NOT to be notified but however did find out a few months ago. Patient decided not to have any surgical intervention and has since been residing at [facility]. 05/16: abdominal x-ray: No evidence of ileus or obstruction or free air. #UTI: The family met yesterday it was decided that they will continue the meropenem for the full course and then not have further workup. She will go for rehabilitation [facility] tomorrow. However talking to the patient today, it seems like she does not want to go to rehabilitation and without her stay here. We will continue this discussion with the family. -Continue meropenem - PICC line placed -Continue phenazopyridine #GI malignancy: Patient has declined treatment for this per family discussion. We are treating her pain. -No treatment -Ketorolac for pain -Morphine for pain #Chronic medical problems: Diabetes, anxiety, dementia, peripheral neuropathy, chronic pain -Continue tramadol, polyethylene glycol, losartan, iron, venlafaxine, omeprazole , trazodone, mirtazapine, gabapentin, carbidopa/levodopa, atorvastatin, senna, docusate DVT prophylaxis with apixiban DO NOT RESUSCITATE/DO NOT INTUBATE Problem List: 1. UTI 2. GI malignancy Pain Ratin Pain Location: abd Pain Goal: Remain pain free Pain Plan: see a/p Tomorrow's Labs & Rationales: none Consulting Request: Consulting Specialty: Infectious Disease
--- NOTE | 2017-05-18 11:03 | Event Note ---
Event Note Event Note: SITUATION: * Discussions of goals of care with the patient's daughter Rdaha BOLAND) * Follow-up discussion with the patient's nurse practitioner at [place] BRIEF: * We had an extensive discussion yesterday with the patient and her daughters with regards to the plans moving forward * The patient has expressed no desire to pursue any further workup including blood tests, imaging or interventions with regards to her underlying malignancy and potential complications that may be arising. We spent a long time discussing the potential complications that may manifest due to the previously diagnosed but on staged villous adenocarcinoma. * The patient's primary complaint of abdominal pain is what she would like managed, indicates a strong desire to be comfortable and spend time with her grandson * At this time the patient and daughter would like to continue with the course of antibiotics until it's completed at which point the PICC line can be removed while she is at [place] * They have a very well-established care with the nurse practitioner at [place] whom I had a chance to speak with at length yesterday. She indicates that they would be able to set her up with palliative care at [place] and if need be follow-up hospice ASSESSMENT/PLAN: * We will plan to discharge Mrs. Rodriguez back to [place] this weekend with the PICC line in place to complete a total of 2 weeks meropenem. Further care with regards to palliative/comfort/hospice will be followed up at the facility
[2017-05-18 14:27] VITALS: BP 128/58
--- NOTE | 2017-05-18 16:37 | PN- Infect Dx ---
Subjective Subjective: Afebrile. She continues to complain of abdominal discomfort. Objective Last 24 Hrs of Vital Signs/I&O Vital Signs Date Time Temp Pulse Resp B/P B/P Pulse O2 O2 Flow FiO2 Mean Ox Delivery Rate 05/18 1427 98.6 73 20 128/58 95 Room Air 05/18 0845 152/54 05/18 0658 98.9 77 20 152/54 97 Room Air 05/18 0000 Room Air 05/17 2310 98.4 72 18 128/48 93 Room Air Intake & Output 05/18 1600 05/18 0800 05/18 0000 Intake Total 690 240 960 Output Total 400 125 Balance 690 -160 835 Intake, IV 50 Intake, Oral 640 240 960 Number 0 Bowel Movements Output, Urine 400 125 Physical Exam Other Physical Findings: She appears comfortable in no acute distress Abdomen is soft, mildly tender to palpation diffusely, with no guarding or rebound, positive bowel sounds Results Last 24 Hours of Lab Results: Laboratory Tests 05/17 2009 Urines Urine Color (YEL,AMB,STR) YEL Urine Clarity (CLEAR) HAZY H Urine pH (5.0 - 8.0) 6.0 Ur Specific [place] (1.001 - 1.035) >= 1.030 Urine Protein (NEG,<30 MG/DL) 30 H Urine Ketones (NEG) NEG Urine Nitrite (NEG) NEG Urine Bilirubin (NEG) NEG Urine Urobilinogen (0.1 - 1.0 EU/dl) 0.2 Ur Leukocyte Esterase (NEG) SMALL H Ur Microscopic SEDIMENT EXAMINED Urine RBC (0 - 5 /HPF) 25-50 H Urine WBC (0 - 2 /HPF) > 75 H Ur Epithelial Cells (NONE,FEW) MANY H Urine Hemoglobin (NEG) SMALL H Urine Glucose (N MG/DL) NEG Last 24 Hours of Bradley Results: Blood culture May 17 negative Urine culture May 17 negative Assessment/Plan Impression: Clinically stable with temperatures remaining normal but with her white blood cell count continuing to increase after initially decreasing on Meropenem now Day 7 of treatment for presumed sepsis of urologic origin secondary to ESBL producing Escherichia coli. She continues to have abdominal tenderness, which may be related to her untreated adenocarcinoma of the ascending colon, or to a biliary process, with the elevated alkaline phosphatase and a prominent common bile duct on the initial CT scan (status post cholecystectomy) but she does not want any further evaluation for this or for her abdominal pain. The above note reviewed with regard to decision regarding palliative care and, at this point, if no further workup is planned feel that the antibiotics should be discontinued. Suggestion: 1. Would consider a right upper quadrant ultrasound if patient agreeable 2. If no further testing is planned would discontinue the Meropenem and follow off antibiotics Collette Clark MD will be covering me until May 27
[2017-05-18 21:08] VITALS: BP 134/72
[2017-05-19 07:09] VITALS: BP 128/78
--- NOTE | 2017-05-19 08:02 | PN- Housestaff ---
See Addendum Subjective Follow-up For: UTI Subjective: No overnight events. She still does not want to go back to rehabilitation. She is worried that her pain will not be controlled. Right now she has 10/10 abdominal pain. However she was sleeping when I came in the room. Review of Systems Constitutional: Reports: no symptoms. EENTM: Reports: no symptoms. Cardiovascular: Reports: no symptoms. Respiratory: Reports: no symptoms. Gastrointestinal: Reports: see HPI. Genitourinary: Reports: no symptoms. Musculoskeletal: Reports: no symptoms. Skin: Reports: no symptoms. Neurological/Psychological: Reports: no symptoms. Hematologic/Endocrine: Reports: no symptoms. Immunologic/Allergic: Reports: no symptoms. Objective Last 24 Hrs of Vital Signs/I&O Vital Signs Date Time Temp Pulse Resp B/P B/P Pulse O2 O2 Flow FiO2 Mean Ox Delivery Rate 05/19 709 98.7 77 20 128/78 93 Room Air 05/19 0000 Room Air 05/18 210 99.1 73 20 134/72 93 05/18 1427 98.6 73 20 128/58 95 Room Air Intake & Output 05/19 1600 05/19 0800 05/19 0000 Intake Total 480 480 Output Total 100 Balance 480 380 Intake, Oral 480 480 Output, Urine 100 Physical Exam General Appearance: Alert, Oriented X3, Cooperative, No Acute Distress Cardiovascular: Regular Rate, Normal S1, Normal S2 Lungs: Clear to Auscultation Abdomen: diffusely tender to palpation Current Medications: Current Medications Sig/Majo Start time Last Medication Dose Route Stop Time Status Admin Apixaban 5 MG BID 05/10 2200 AC 05/18 PO 2057 Atorvastatin Calcium 20 MG QPM 05/10 2200 AC 05/18 PO 2057 Carbidopa/Levodopa 0.5 TAB TID 05/10 2200 AC 05/18 PO 2057 Docusate Sodium 100 MG BID PRN 05/10 2000 AC PO Ferrous Sulfate 325 MG DAILY 05/11 1000 AC 05/18 PO 39 Gabapentin 300 MG TID 05/10 2200 AC 05/18 PO 2057 Insulin Aspart 0 TIDAC 05/11 08 AC 05/18 SC 1236 Insulin Detemir 13 UNITS BID 05/12 1000 AC 05/18 SC 2057 Ketorolac 30 MG .STK-MED ONE 05/18 2046 DC Tromethamine IM 05/18 2047 Ketorolac 15 MG .STK-MED ONE 05/18 1136 DC Tromethamine IM 05/18 1137 Ketorolac 15 MG Q8P PRN 05/11 1030 AC 05/18 Tromethamine IV 2057 Losartan Potassium 50 MG DAILY 05/11 1000 AC 05/18 PO 0845 Meropenem 1 GM Q8H 05/11 1100 AC 05/19 IV 0340 Mirtazapine 30 MG AT BEDTIME 05/10 2200 AC 05/18 PO 2057 Morphine Sulfate 2 MG Q8P PRN 05/18 1815 AC 05/19 IV 0340 Morphine Sulfate 2 MG Q12P PRN 05/16 1830 DC 05/18 IV 0844 Omeprazole 40 MG DAILY AC 05/11 0700 AC 05/19 PO 0526 Oxycodone/ 1 TAB Q6P PRN 05/18 1545 AC 05/19 Acetaminophen PO 0526 Phenazopyridine HCl 100 MG TID PRN 05/14 0930 AC PO Polyethylene Glycol 17 GM DAILY 05/11 1000 AC 05/18 PO 0841 Senna 187 MG AT BEDTIME PRN 05/10 2000 AC 05/14 PO 0809 Tramadol HCl 50 MG Q6P PRN 05/14 0930 AC 05/18 PO 0630 Trazodone HCl 50 MG QPM 05/10 2200 AC 05/18 PO 2057 Venlafaxine HCl 225 MG 0800 05/11 0800 AC 05/18 PO 0837 Vitamin A/Vitamin D 1 JOAN BID 05/17 220 05/18 TOP 2058 Zinc Oxide 1 JOAN ONCE ONE 05/18 2015 [place] 05/18 [facility] 05/18 Last 24 Hrs of Lab/Bradley Results Last 24 Hrs of Labs/Mics: Laboratory Tests 05/19/17 0720: CBC w Diff NO MAN DIFF REQ, RBC 2.90 L, MCV 87.3, MCH 27.9, RDW 15.8 H, MPV 9.6, Gran % 78.1 H, Lymphocytes % 12.5 L, Monocytes % 5.4, Eosinophils % 3.5, Basophils % 0.5, Absolute Granulocytes 9.4 H, Absolute Lymphocytes 1.5, Absolute Monocytes 0.7 H, Absolute Eosinophils 0.4, Absolute Basophils 0.1, PUBS MCHC 32.0 L Assessment/Plan Assessment: 77-year-old lady with a PMH of diabetes complicated with neuropathy, CAD/CABG status post stenting, chronic anxiety, vascular dementia, peripheral vascular disease, left femoral-popliteal bypass with failed grafting and resultant left above-knee amputation, hypertension, history of GI bleed in 2015 found to have sessile polyp and a mass in the ascending colon that came back positive on biopsy for villous adenoma with superficial invasive adenocarcinoma for which the patient opted NOT to be notified but however did find out a few months ago. Patient decided not to have any surgical intervention and has since been residing at [facility]. 05/16: abdominal x-ray: No evidence of ileus or obstruction or free air. #UTI: The family met yesterday it was decided that they will continue the meropenem for the full course and then not have further workup. She is supposed to go to rehabilitation today. She still expresses concerns about her pain control there. We will continue this discussion with the family. -Continue meropenem - PICC line placed. Consider stopping meropenem and removing the PICC line before she leaves. -Continue phenazopyridine #GI malignancy: Patient has declined treatment for this per family discussion. We are treating her pain. -No treatment -Ketorolac for pain -Morphine for pain #Chronic medical problems: Diabetes, anxiety, dementia, peripheral neuropathy, chronic pain -Continue tramadol, polyethylene glycol, losartan, iron, venlafaxine, omeprazole , trazodone, mirtazapine, gabapentin, carbidopa/levodopa, atorvastatin, senna, docusate DVT prophylaxis with apixiban DO NOT RESUSCITATE/DO NOT INTUBATE Problem List: 1. UTI 2. GI malignancy Pain Ratin Pain Location: abd Pain Goal: Remain pain free Pain Plan: see a/p Tomorrow's Labs & Rationales: none Consulting Request: Consulting Specialty: Infectious Disease
[2017-05-19 08:19] LABS: ABSOLUTE BASOPHIL COUNT 0.1 /CUMM (0.0-0.2); ABSOLUTE EOSINOPHIL COUNT 0.4 /CUMM (0.0-0.7); ABSOLUTE GRANULOCYTE CT 9.4 /CUMM (1.4-6.5); ABSOLUTE LYMPH COUNT 1.5 /CUMM (1.2-3.4); ABSOLUTE MONOCYTE COUNT 0.7 /CUMM (0.10-0.60); BASOPHIL % 0.5 % (0.0-2.0); EOSINOPHIL % 3.5 % (0-5); GRANULOCYTE % 78.1 % (42.2-75.2); HEMATOCRIT 25.3 % (37-47); MEAN CORPUSCULAR HGB 27.9 PG (27.0-31.0); MEAN CORPUSCULAR VOLUME 87.3 FL (81.0-99.0); MEAN PLATELET VOLUME 9.6 FL (7.4-10.4); PLATELET COUNT 339 /CUMM (130-400); RBC DISTRIBUTION WIDTH 15.8 % (11.5-14.5); WHITE BLOOD CELL COUNT 12.1 /CUMM (4.8-10.8)
[2017-05-19 15:36] VITALS: BP 122/58
[2017-05-19 23:49] VITALS: BP 122/58
[2017-05-20 06:50] VITALS: BP 130/60
--- NOTE | 2017-05-20 08:15 | PN- Housestaff ---
See Addendum Subjective Follow-up For: UTI Subjective: No overnight events. Meropenem was discontinued. She is still having significant abd pain. No other issues. Review of Systems Constitutional: Reports: no symptoms. EENTM: Reports: no symptoms. Cardiovascular: Reports: no symptoms. Respiratory: Reports: no symptoms. Gastrointestinal: Reports: see HPI. Genitourinary: Reports: no symptoms. Musculoskeletal: Reports: no symptoms. Skin: Reports: no symptoms. Neurological/Psychological: Reports: no symptoms. Hematologic/Endocrine: Reports: no symptoms. Immunologic/Allergic: Reports: no symptoms. Objective Last 24 Hrs of Vital Signs/I&O Vital Signs Date Time Temp Pulse Resp B/P B/P Pulse O2 O2 Flow FiO2 Mean Ox Delivery Rate 05/20 0650 98.3 76 20 130/60 93 05/19 2349 98.2 77 18 122/58 94 05/19 1536 97.7 72 18 122/58 95 05/19 0924 70 120/52 Intake & Output 05/20 1600 05/20 0800 05/20 0000 Intake Total 520 800 Output Total Balance 520 800 Intake, IV 40 Intake, Oral 480 800 Number 0 Bowel Movements Physical Exam General Appearance: Alert, Oriented X3, Cooperative, No Acute Distress Cardiovascular: Regular Rate, Normal S1, Normal S2 Lungs: Clear to Auscultation Abdomen: Normal Bowel Sounds, Soft, Diffusley tender to palpation Current Medications: Current Medications Sig/Majo Start time Last Medication Dose Route Stop Time Status Admin Apixaban 5 MG BID 05/10 220 AC 05/19 PO 213 Atorvastatin Calcium 20 MG QPM 05/10 220 AC 05/19 PO 2132 Bisacodyl 5 MG DAILY 05/19 1341 AC 05/19 PO 1440 Carbidopa/Levodopa 0.5 TAB TID 05/10 220 AC 05/19 PO 2132 Docusate Sodium 100 MG .STK-MED ONE 05/19 2130 DC PO 05/19 213 Docusate Sodium 100 MG .STK-MED ONE 05/19 0913 DC PO 05/19 0914 Docusate Sodium 100 MG BID PRN 05/10 2000 AC 05/19 PO 213 Ferrous Sulfate 325 MG DAILY 05/11 1000 AC 05/19 PO 0925 Gabapentin 300 MG TID 05/10 220 AC 05/19 PO 213 Insulin Aspart 0 TIDAC 05/11 0800 AC 05/19 SC 1634 Insulin Detemir 13 UNITS BID 05/12 1000 AC 05/19 SC 2132 Ketorolac 15 MG Q8P PRN 05/11 1030 AC 05/18 Tromethamine IV 2058 Losartan Potassium 50 MG DAILY 05/11 1000 AC 05/19 PO 0924 Meropenem 1 GM Q8H 05/11 1100 DC 05/19 IV 1904 Mirtazapine 30 MG AT BEDTIME 05/10 2200 AC 05/19 PO 2132 Morphine Sulfate 2 MG Q8P PRN 05/18 1815 AC 05/19 IV 1904 Omeprazole 40 MG DAILY AC 05/11 0700 AC 05/20 PO 0601 Oxycodone/ 1 TAB Q6P PRN 05/18 1545 AC 05/19 Acetaminophen PO 0526 Phenazopyridine HCl 100 MG TID PRN 05/14 0930 AC PO Polyethylene Glycol 17 GM DAILY 05/11 1000 AC 05/19 PO 0927 Senna 187 MG AT BEDTIME PRN 05/10 2000 AC 05/14 PO 0809 Tramadol HCl 50 MG Q6P PRN 05/14 0930 AC 05/18 PO 0630 Trazodone HCl 50 MG QPM 05/10 2200 AC 05/19 PO 2132 Venlafaxine HCl 225 MG 0800 05/11 0800 AC 05/19 PO 0918 Vitamin A/Vitamin D 1 JOAN BID 05/17 2200 AC 05/19 TOP 2132 Last 24 Hrs of Lab/Bradley Results Last 24 Hrs of Labs/Mics: Laboratory Tests 05/20/17 0604: Sodium Pending, Potassium Pending, Chloride Pending, Carbon Dioxide Pending, Anion Gap Pending, BUN Pending, Creatinine Pending, BUN/Creatinine Ratio Pending , CBC w Diff Pending, WBC Pending, RBC Pending, Hgb Pending, Hct Pending, MCV Pending, MCH Pending, RDW Pending, Plt Count Pending, MPV Pending, PUBS MCHC Pending Assessment/Plan Assessment: 77-year-old lady with a PMH of diabetes complicated with neuropathy, CAD/CABG status post stenting, chronic anxiety, vascular dementia, peripheral vascular disease, left femoral-popliteal bypass with failed grafting and resultant left above-knee amputation, hypertension, history of GI bleed in 2015 found to have sessile polyp and a mass in the ascending colon that came back positive on biopsy for villous adenoma with superficial invasive adenocarcinoma for which the patient opted NOT to be notified but however did find out a few months ago. Patient decided not to have any surgical intervention and has since been residing at [facility]. 05/16: abdominal x-ray: No evidence of ileus or obstruction or free air. #UTI: She has completed a two-week course of meropenem. She will go to [place] today. -Meropenem has been stopped. PICC line will come out today. -Continue phenazopyridine #GI malignancy: Patient has declined treatment for this per family discussion. We are treating her pain. -No treatment -Ketorolac for pain -Morphine for pain #Chronic medical problems: Diabetes, anxiety, dementia, peripheral neuropathy, chronic pain -Continue tramadol, polyethylene glycol, losartan, iron, venlafaxine, omeprazole , trazodone, mirtazapine, gabapentin, carbidopa/levodopa, atorvastatin, senna, docusate DVT prophylaxis with apixiban DO NOT RESUSCITATE/DO NOT INTUBATE Problem List: 1. UTI 2. GI malignancy Pain Ratin Pain Location: abd Pain Goal: Remain pain free Pain Plan: see a/p Tomorrow's Labs & Rationales: none Consulting Request: Consulting Specialty: Infectious Disease
[2017-05-20 08:29] LABS: ABSOLUTE BASOPHIL COUNT 0.1 /CUMM (0.0-0.2); ABSOLUTE EOSINOPHIL COUNT 0.2 /CUMM (0.0-0.7); ABSOLUTE GRANULOCYTE CT 11.3 /CUMM (1.4-6.5); ABSOLUTE LYMPH COUNT 1.3 /CUMM (1.2-3.4); ABSOLUTE MONOCYTE COUNT 0.7 /CUMM (0.10-0.60); BASOPHIL % 0.6 % (0.0-2.0); EOSINOPHIL % 1.2 % (0-5); GRANULOCYTE % 82.9 % (42.2-75.2); MEAN CORPUSCULAR HGB 27.8 PG (27.0-31.0); MEAN CORPUSCULAR HGB CONC 32.1 G/DL (33.0-37.0); MEAN CORPUSCULAR VOLUME 86.6 FL (81.0-99.0); MEAN PLATELET VOLUME 9.4 FL (7.4-10.4); PLATELET COUNT 326 /CUMM (130-400); RBC DISTRIBUTION WIDTH 15.7 % (11.5-14.5); WHITE BLOOD CELL COUNT 13.6 /CUMM (4.8-10.8)
[2017-05-20 12:48] VITALS: BP 130/60
== END 2017-05-20 13:15 | DRG 872 ==
LOC: ERH 11:47 → 1NO 15:10 → 2NB 15:10 → ERHI 15:10 → ENRESERV 16:16 → ENTRNSPT 16:42 → EDTRNSPTSTS 18:10 → 2NB 18:12 → 1NO 18:12 → CMPTRNSPT 18:37 → 1NO 05-12 11:32 → 2NB 05-14 14:34 → ENPENDDIS 05-20 11:32 → 2NB 05-20 13:15
PROVIDERS: Emergency Medicine; Hospitalist; Internal Medicine; Internal Medicine Infectious Disease; Preventive Medicine Public Health & General Preventive Medicine; Student in an Organized Health Care Education/Training Program; ADMIT Internal Medicine
PROC: 02HV33Z Insertion of Infusion Device into Superior Vena Cava, Percutaneous Approach (ICD-10-PCS; principal; 2017-05-15)
DX: A41.51 Sepsis due to Escherichia coli [E. coli] (principal); E87.2 Acidosis; E11.40 Type 2 diabetes mellitus with diabetic neuropathy, unspecified; E11.51 Type 2 diabetes mellitus with diabetic peripheral angiopathy without gangrene; F11.20 Opioid dependence, uncomplicated; C18.9 Malignant neoplasm of colon, unspecified; I48.91 Unspecified atrial fibrillation; I10 Essential (primary) hypertension; R55 Syncope and collapse; N39.0 Urinary tract infection, site not specified; R71.0 Precipitous drop in hematocrit; E87.6 Hypokalemia; F01.50 Vascular dementia, unspecified severity, without behavioral disturbance, psychotic disturbance, mood disturbance, and anxiety; I25.10 Atherosclerotic heart disease of native coronary artery without angina pectoris; Z95.1 Presence of aortocoronary bypass graft; Z95.5 Presence of coronary angioplasty implant and graft; F41.9 Anxiety disorder, unspecified; Z89.612 Acquired absence of left leg above knee; Z66 Do not resuscitate; Z79.4 Long term (current) use of insulin; Z86.73 Personal history of transient ischemic attack (TIA), and cerebral infarction without residual deficits; Z87.11 Personal history of peptic ulcer disease; F32.9 Major depressive disorder, single episode, unspecified; M19.90 Unspecified osteoarthritis, unspecified site; Z96.642 Presence of left artificial hip joint; Z96.652 Presence of left artificial knee joint; R01.1 Cardiac murmur, unspecified; G89.29 Other chronic pain; D72.0 Genetic anomalies of leukocytes; Z79.01 Long term (current) use of anticoagulants; R21 Rash and other nonspecific skin eruption
CPT/HCPCS: 1NP; 2NBP; 36415; 74000; 74177; 81001; 82436; 87040; 87086; 93005; 93010; 93306; C1769; J0696; J0713; J1815; J1885; J2185; J2310; J7042